=== PATIENT | male | born 2000 | race Caucasian/White ===

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

== ENCOUNTER 2020-10-21 16:14 | Emergency (ER) | payer BC ==
[2020-10-21 17:23] VITALS: BP 127/85; PULSE 105; RESP 20; TEMP 97.9
--- NOTE | 2020-10-21 18:59 | XR ---
EXAM: Abdomen radiograph. HISTORY: Ingested plastic. TECHNIQUE: Supine AP view. COMPARISON: None available. FINDINGS: There is a 1.6 cm cylindrical object overlying the left lower quadrant/hemipelvis. Additional similar object overlying the right groin soft tissues also seen. There are nondilated bowel loops with a non obstructive pattern. There are no pathologic calcifications. No acute osseous abnormality seen. No pn eumoperitoneum. IMPRESSION: Radiopaque objects overlying the left lower quadrant and right groin soft tissues. Correlate for radi opaque foreign bodies. Otherwise no acute process.
--- NOTE | 2020-10-21 19:11 | ED ---
General Adult HPI - General Chief complaint: Abdominal Pain Stated complaint: Swallowed Foreign Object Time Seen by Provider: 10/21/20 17:57 Source: family, RN notes reviewed, old records reviewed Mode of arrival: ambulatory Limitations: language barrier - History of Present Illness Initial comments: 20-year-old male history of autism, nonverbal presenting with ingested foreign body, and vomiting and diarrhea. Patient's parents are able to give a detailed history. He was in his bedroom, he had ripped apart the plastic bedsheet and ingested some of this plastic. He had some vomiting and there was noted to be a plastic piece within the vomit. He's had diarrhea today. No vomiting in the past 24 hours. - Related Data Home Medications Medication Instructions Recorded Confirmed PARoxetine HCL [PARoxetine HCL ER] 37.5 mg PO DAILY 06/19/18 06/19/18 Allergies Allergy/AdvReac Type Severity Reaction Status Date / Time No Known Allergies Allergy Verified 06/19/18 12:50 Review of Systems ROS Statement: Those systems with pertinent positive or pertinent negative responses have been documented in the HPI. ROS Other: All systems not noted in ROS Statement are negative. Past Medical History Additional Past Medical History / Comment(s): autism History of Any Multi-Drug Resistant Organisms: None Reported Additional Past Surgical History / Comment(s): dental surg Past Psychological History: No Psychological Hx Reported Past Alcohol Use History: None Reported Past Drug Use History: None Reported General Exam Limitations: language barrier General appearance: alert, in no apparent distress Head exam: Present: atraumatic, normocephalic Eye exam: Present: normal appearance, PERRL Neck exam: Present: normal inspection. Absent: tenderness, meningismus Respiratory exam: Present: normal lung sounds bilaterally. Absent: respiratory distress, wheezes Cardiovascular Exam: Present: regular rate, normal rhythm GI/Abdominal exam: Present: soft, normal bowel sounds. Absent: distended, tenderness, guarding, rebound Extremities exam: Present: normal inspection, normal capillary refill. Absent: pedal edema Neurological exam: Present: alert, CN II-XII intact. Absent: motor sensory deficit Skin exam: Present: warm, dry, intact. Absent: cyanosis, diaphoretic Course Vital Signs 10/21/20 17:16 Temperature 97.9 F Pulse Rate 105 H Respiratory 20 Rate Blood Pressure 127/85 O2 Sat by Pulse 97 Oximetry Medical Decision Making - Medical Decision Making X-ray performed, negative for obstruction no radiopaque foreign body within the abdomen. There is 2 small plastic or metal cylindrical objects which are on the patient's shorts. He does have stool in the transverse colon Return parameters were discussed in detail regarding this patient's presentation. If he should have any further vomiting, no bowel movements, flatus, or diarrhea. They will be present and at that time patient will receive further evaluation treatment. At this time they will monitor at home. Disposition Clinical Impression: Foreign body ingestion, Nausea vomiting and diarrhea Disposition: HOME SELF-CARE Condition: Good Instructions (If sedation given, give patient instructions): Acute Nausea and Vomiting (ED) Is patient prescribed a controlled substance at d/c from ED?: No Referrals: Lenora Locke MD [Primary Care Provider] - 1-2 days Time of Disposition: 19:11
== END 2020-10-21 19:22 | disposition home or self-care (01) ==
LOC: EC 16:14
DX: T18.9XXA Foreign body of alimentary tract, part unspecified, initial encounter (principal); R11.2 Nausea with vomiting, unspecified; R19.7 Diarrhea, unspecified; W45.8XXA Other foreign body or object entering through skin, initial encounter
CPT/HCPCS: 74018; 99284

== ENCOUNTER 2021-06-29 20:37 | Emergency (ER) | payer BC, OTHER ==
[2021-06-29 21:14] VITALS: BP 110/61; PULSE 88; RESP 18
[2021-06-29 23:10] LABS: Appearance,Urine Cloudy (Clear); Bilirubin,Urine Negative (Negative); Blood,Urine Large (Negative); Color,Urine Yellow; Glucose,Urine (UA) Negative (Negative); Ketones,Urine Negative (Negative); Leukocyte Esterase,Urine Moderate (Negative); Nitrite,Urine Negative (Negative); PH, Urine 7.5 (5.0-8.0); Protein,Urine 3+ (Negative); RBC,Urine >182 /hpf (0-5); Specific Gravity,Urine 1.022 (1.001-1.035); Squamous Epithelial Cell,Urine <1 /hpf (0-4); WBC,Urine 120 /hpf (0-5)
--- NOTE | 2021-06-29 23:43 | ED ---
Male Urogenital HPI - General Chief complaint: Urogenital Stated complaint: Discolored Urine Time Seen by Provider: 06/29/21 23:42 Source: patient, family, RN notes reviewed Mode of arrival: ambulatory Limitations: physical limitation - History of Present Illness Initial comments: This is a 20-year-old male with a history of autism. Patient is nonverbal. Patient family had abnormal [facility]inal[facility] a [facility]. Mother states he has high pain tolerance. Patient has never had a UTI in the past. Apparently the urine was very dark and had some pain to it as well per mother. He is acting appropriately otherwise. Vital signs are stable. - Related Data Home Medications Medication Instructions Recorded Confirmed PARoxetine HCL [PARoxetine HCL ER] 37.5 mg PO DAILY 06/19/18 06/19/18 Previous Rx's Medication Instructions Recorded Cefdinir 300 mg PO Q12HR #14 cap 06/30/21 Allergies Allergy/AdvReac Type Severity Reaction Status Date / Time No Known Allergies Allergy Verified 06/29/21 21:14 Review of Systems ROS Statement: Those systems with pertinent positive or pertinent negative responses have been documented in the HPI. Limited by conditionchronic ROS Other: All systems not noted in ROS Statement are negative. Past Medical History Additional Past Medical History / Comment(s): autism History of Any Multi-Drug Resistant Organisms: None Reported Additional Past Surgical History / Comment(s): dental surg Past Psychological History: No Psychological Hx Reported Smoking Status: Never smoker Past Alcohol Use History: None Reported Past Drug Use History: None Reported General Exam Limitations: physical limitation General appearance: alert, in no apparent distress Head exam: Present: atraumatic, normocephalic, normal inspection Eye exam: Present: normal appearance, PERRL, EOMI. Absent: scleral icterus, conjunctival injection, periorbital swelling ENT exam: Present: normal exam, mucous membranes moist Neck exam: Present: normal inspection. Absent: tenderness, meningismus, lymphadenopathy Respiratory exam: Present: normal lung sounds bilaterally. Absent: respiratory distress, wheezes, rales, rhonchi, stridor Cardiovascular Exam: Present: regular rate, normal rhythm, normal heart sounds. Absent: systolic murmur, diastolic murmur, rubs, gallop, clicks GI/Abdominal exam: Present: soft, normal bowel sounds. Absent: distended, tenderness, guarding, rebound, rigid Extremities exam: Present: normal inspection, full ROM, normal capillary refill. Absent: tenderness, pedal edema, joint swelling, calf tenderness Back exam: Present: normal inspection Neurological exam: Present: alert, CN II-XII intact Psychiatric exam: Present: normal affect, normal mood Skin exam: Present: warm, dry, intact, normal color. Absent: rash Course Vital Signs 06/29/21 21:10 Pulse Rate 88 Respiratory 18 Rate Blood Pressure 110/61 O2 Sat by Pulse 96 Oximetry Medical Decision Making - Medical Decision Making Patient presents with abnormal urine. Urinalysis consistent with urinary tract infection. Urine sent for gonorrhea and chlamydia testing. Patient autistic. Not sexually active. Patient in no distress. Computed tomography scan shows possible ileus but no evidence of urogenital abnormality. Patient is eating and drinking normally. No difficulties with bowel movements. We are unable to obtain blood work, however, the patient does not appear to be ill or toxic. Vital signs stable, patient afebrile. I'm going to treat with Omnicef 300 mg twice a day for 7 days. Patient will need to follow up with urology. Given follow-up information for Dr. Vickers. Return follow-up parameters discussed. Mother aware of the treatment plan and concurs. QUESTIONS answered. Follow-up with your child's physician as directed. Bring your child back to the emergency department immediately if any symptoms worsen or new symptoms develop. Return if any other problems arise. - Lab Data Lab Results 06/29/21 Range/Units 21:23 Urine Color Yellow Urine Appearance Cloudy (Clear) Urine pH 7.5 (5.0-8.0) Ur Specific [place] 1.022 (1.001-1.035) Urine Protein 3+ H (Negative) Urine Glucose (UA) Negative (Negative) Urine Ketones Negative (Negative) Urine Blood Large H (Negative) Urine Nitrite Negative (Negative) Urine Bilirubin Negative (Negative) Urine Urobilinogen 3.0 (<2.0) mg/dL Ur Leukocyte Esterase Moderate H (Negative) Urine RBC >182 H (0-5) /hpf Urine WBC 120 H (0-5) /hpf Ur Squamous Epith Cells <1 (0-4) /hpf Disposition Clinical Impression: Urinary tract infection Disposition: HOME SELF-CARE Condition: Good Instructions (If sedation given, give patient instructions): Urinary Tract I nfection in Men (ED) Additional Instructions: Follow-up with the urologist as directed. Call at 8 AM tomorrow morning to schedule a follow-up appointment. Also make an appointment with the primary care physician. Follow-up with your child's physician as directed. Bring your child back to the emergency department immediately if any symptoms worsen or new symptoms develop. Return if any other problems arise. Administer the antibiotic as directed until it is gone. Prescriptions: Cefdinir 300 mg PO Q12HR #14 cap Is patient prescribed a controlled substance at d/c from ED?: No Referrals: James Vickers MD [STAFF PHYSICIAN] - 07/03/21 Lenora Locke MD [Primary Care Provider] - 07/02/21 Time of Disposition: 01:21
[2021-06-29] MEDS ORDERED: CEFDINIR 300 MG CAP PO STA (23:49)
--- NOTE | 2021-06-30 01:08 | CT ---
EXAMINATION TYPE: CT abdomen pelvis wo con DATE OF EXAM: 06/30/2021 COMPARISON: HISTORY: ABDOMINAL PAIN, HEMATURIA CT DLP: 521 mGycm Automated exposure control for dose reduction was used. Images obtained from the diaphragm to the floor the pelvis without contrast. The lung bases are clear. No pleural effusion. Heart size is fairly normal. No pericardial effusion. Liver spleen and stomach pancreas and gallbladder appear intact. The bile ducts are not dilated. There is no adrenal mass. Kidneys of normal size. There is no hydronephrosis. Ureters are not dilated . There is no retroperitoneal adenopathy. The bladder distends smoothly. There is no inguinal hernia. No free fluid in the pelvis. There is no mesenteric edema. No ascites or free air. No bowel obstruction. Small bowel measures up t o 2.6 cm. Appendix appears medial and appears normal. The lumbar vertebrae have normal alignment. No compression fracture. Posterior elements are intact. B pili pelvis is intact. Hip joints are intact. IMPRESSION: Normal appendix. No sign of renal stone or obstruction. Mild small bowel distention up to 2.6 cm. Thi s is consistent with minimal ileus.
== END 2021-06-30 01:39 | disposition home or self-care (01) ==
LOC: EC 20:37
DX: N39.0 Urinary tract infection, site not specified (principal)
CPT/HCPCS: 74176; 81001; 99284

== ENCOUNTER 2022-05-11 20:24 | Emergency (ER) | payer OTHER, BC ==
[2022-05-11] MEDS ORDERED: ONDANSETRON 4 MG/2 ML VIAL IVP STA (21:21)
--- NOTE | 2022-05-11 21:26 | ED ---
Nausea/Vomiting/Diarrhea HPI - General Chief complaint: Nausea/Vomiting/Diarrhea Stated complaint: Vomiting,Fever Time Seen by Provider: 05/11/22 21:09 Source: patient, family Mode of arrival: ambulatory Limitations: altered mental status, physical limitation - History of Present Illness Initial comments: Patient is a 21-year-old male history of autism presenting with chief complaint of vomiting. Mother states that the snf called her today and states that he has been lethargic and had one episode of vomiting after his meal today. Patient has shown no other signs of distress, mother does not endorse any history of abdominal surgeries. They attempted to get a temperature however this was difficult due to patient excitability. No indications of abdominal pain, no cough or shortness of breath. . - Related Data Home Medications Medication Instructions Recorded Confirmed PARoxetine HCL [PARoxetine HCL ER] 37.5 mg PO DAILY 06/19/18 06/19/18 Previous Rx's Medication Instructions Recorded Cefdinir 300 mg PO Q12HR #14 cap 06/30/21 Allergies Allergy/AdvReac Type Severity Reaction Status Date / Time No Known Allergies Allergy Verified 05/11/22 20:37 Review of Systems ROS Statement: Those systems with pertinent positive or pertinent negative responses have been documented in the HPI. ROS Other: All systems not noted in ROS Statement are negative. Past Medical History Additional Past Medical History / Comment(s): autism History of Any Multi-Drug Resistant Organisms: None Reported Additional Past Surgical History / Comment(s): dental surg Past Psychological History: No Psychological Hx Reported Smoking Status: Never smoker Past Alcohol Use History: None Reported Past Drug Use History: None Reported General Exam Limitations: altered mental status, physical limitation General appearance: alert, in no apparent distress Head exam: Present: atraumatic, normocephalic, normal inspection Eye exam: Present: normal appearance Neck exam: Present: normal inspection, full ROM Respiratory exam: Present: normal lung sounds bilaterally. Absent: respiratory distress, wheezes, rales, rhonchi, stridor Cardiovascular Exam: Present: regular rate, normal rhythm, normal heart sounds. Absent: systolic murmur, diastolic murmur, rubs, gallop, clicks GI/Abdominal exam: Present: soft. Absent: distended, tenderness, guarding, rebound, rigid Neurological exam: Present: alert, altered (baseline) Psychiatric exam: Present: normal affect, normal mood Skin exam: Present: warm, dry, intact, normal color. Absent: rash Course Vital Signs 05/11/22 05/12/22 20:35 00:18 Temperature 98.9 F 98.1 F Pulse Rate 65 80 Respiratory 20 16 Rate Blood Pressure 133/96 122/74 O2 Sat by Pulse 100 98 Oximetry Medical Decision Making - Medical Decision Making Was pt. sent in by a medical professional or institution (, [facility], [employer], urgent care, hospital, or senior care...) When possible be specific @ -No Did you speak to anyone other than the patient for history (EMS, parent, family, police, friend...)? What history was obtained from this source @ -Mother Did you review nursing and triage notes (agree or disagree)? Why? @ -I reviewed and agree with nursing and triage notes Were old charts reviewed (outside hosp., previous admission, EMS record, old EK G, old radiological studies, urgent care reports/EKG's, senior care records)? Report findings @ -No old charts were reviewed Differential Diagnosis (chest pain, altered mental status, abdominal pain women, abdominal pain men, vaginal bleeding, weakness, fever, dyspnea, syncope, headache, dizziness, GI bleed, back pain, seizure, CVA, palpatations, mental health, musculoskeletal)? @ -Differential includes gastroenteritis, appendicitis, bowel obstruction, constipation, this is not an all inclusive list EKG interpreted by me (3pts min.). @ -As above X-rays interpreted by me (1pt min.). @ -KUB x-ray shows nonacute abdomen CT interpreted by me (1pt min.). @ -None done U/S interpreted by me (1pt. min.). @ -None done What testing was considered but not performed or refused? (CT, X-rays, U/S, labs)? Why? @ -None What meds were considered but not given or refused? Why? @ -None Did you discuss the management of the patient with other professionals (professionals i.e. JIL Noel, [employer]TER, lab, RT, psych nurse, social service liaison, recruitment manager, teacher, maritime officer, cyanide case hardener)? Give summary @ -No Was smoking cessation discussed for >3mins.? @ -No Was critical care preformed (if so, how long)? @ -No Were there social determinants of health that impacted care today? How? (Homelessness, low income, unemployed, alcoholism, drug addiction, transportation, low edu. Level, literacy, decrease access to med. care, half-way, rehab)? @ -No Was there de-escalation of care discussed even if they declined (Discuss DNR or withdrawal of care, Hospice)? DNR status @ -No What co-morbidities impacted this encounter? (DM, HTN, Smoking, COPD, CAD, Cancer, CVA, ARF, Chemo, Hep., AIDS, mental health diagnosis, sleep apnea, mor bid obesity)? @ -None Was patient admitted / discharged? Hospital course, mention meds given and route, prescriptions, significant lab abnormalities, going to OR and other pertinent info. @ -Patient is a 21-year-old male with history of autism presenting for evaluation of vomiting and fatigue that started today. Mother is accompanying the patient, she was made aware of these symptoms by his snf. On physical examination and no signs of distress, patient is relaxing comfortably in the bed on his iPad. Physical examination is unremarkable. WBC 14.2, likely reactive. Glucose 101, remainder CMP is unremarkable. Amylase and lipase are WNL. Urine shows 2+ ketones, likely due to dehydration. Patient was given a dose of Zofran and has been drinking water throughout his course without vomiting. Patient is negative for influenza, RSV, and Covid. KUB x-ray shows nonacute abdomen. I educated the mother on results, shared decision making was used and she is comfortable with discharge at this time and watching for any worsening symptoms. Follow-up with PCP. Report back to ER with any new or worsening symptoms. Discussed return parameters and answered all questions. Patient conveyed verbal understanding and agreed to the plan. I discussed this case in detail with my attending Dr. Retana Undiagnosed new problem with uncertain prognosis? @ -No Drug Therapy requiring intensive monitoring for toxicity (Heparin, Nitro, Insulin, Cardizem)? @ -No Were any procedures done? @ -No Diagnosis/symptom? @ -Gastroenteritis Acute, or Chronic, or Acute on Chronic? @ -Acute Uncomplicated (without systemic symptoms) or Complicated (systemic symptoms)? @ -uncomplicated Side effects of treatment? @ -No Exacerbation, Progression, or Severe Exacerbation? @ -No Poses a threat to life or bodily function? How? (Chest pain, [place], [place], pneumonia, PE, COPD, DKA, ARF, appy, cholecystitis, CVA, Diverticulitis, Homicidal, Suicidal, threat to staff... and all critical care pts) @ -No - Lab Data Result diagrams: 05/11/22 21:21 05/11/22 21:21 Lab Results 05/11/22 05/11/22 05/11/22 Range/Units 21:21 21:21 21:31 WBC 14.2 H (3.8-10.6) k/uL RBC 4.98 (4.30-5.90) m/uL Hgb 15.5 (13.0-17.5) gm/dL Hct 44.8 (39.0-53.0) % MCV 90.1 (80.0-100.0) fL MCH 31.1 (25.0-35.0) pg MCHC 34.6 (31.0-37.0) g/dL RDW 12.9 (11.5-15.5) % Plt Count 222 (150-450) k/uL MPV 8.3 Neutrophils % 83 % Lymphocytes % 12 % Monocytes % 4 % Eosinophils % 1 % Basophils % 0 % Neutrophils # 11.7 H (1.3-7.7) k/uL Lymphocytes # 1.7 (1.0-4.8) k/uL Monocytes # 0.5 (0-1.0) k/uL Eosinophils # 0.1 (0-0.7) k/uL Basophils # 0.0 (0-0.2) k/uL Sodium 140 (137-145) mmol/L Potassium 4.4 (3.5-5.1) mmol/L Chloride 103 (98-107) mmol/L Carbon Dioxide 28 (22-30) mmol/L Anion Gap 9 mmol/L BUN 15 (9-20) mg/dL Creatinine 0.71 (0.66-1.25) mg/dL Est GFR (CKD-EPI)AfAm >90 (>60 ml/min/1.73 sqM) Est GFR (CKD-EPI)NonAf >90 (>60 ml/min/1.73 sqM) Glucose 101 H (74-99) mg/dL Calcium 9.5 (8.4-10.2) mg/dL Total Bilirubin 0.7 (0.2-1.3) mg/dL AST 35 (17-59) U/L ALT 38 (4-49) U/L Alkaline Phosphatase 64 (38-126) U/L Total Protein 7.7 (6.3-8.2) g/dL Albumin 4.6 (3.5-5.0) g/dL Amylase 68 (30-110) U/L Lipase 88 (23-300) U/L Urine Color Urine Appearance (Clear) Urine pH (5.0-8.0) Ur Specific [place] (1.001-1.035) Urine Protein (Negative) Urine Glucose (UA) (Negative) Urine Ketones (Negative) Urine Blood (Negative) Urine Nitrite (Negative) Urine Bilirubin (Negative) Urine Urobilinogen (<2.0) mg/dL Ur Leukocyte Esterase (Negative) Influenza Type A (PCR) Not Detected (Not Detectd) Influenza Type B (PCR) Not Detected (Not Detectd) RSV (PCR) Not Detected (Not Detectd) SARS-CoV-2 (PCR) Not Detected (Not Detectd) 05/11/22 Range/Units 21:46 WBC (3.8-10.6) k/uL RBC (4.30-5.90) m/uL Hgb (13.0-17.5) gm/dL Hct (39.0-53.0) % MCV (80.0-100.0) fL MCH (25.0-35.0) pg MCHC (31.0-37.0) g/dL RDW (11.5-15.5) % Plt Count (150-450) k/uL MPV Neutrophils % % Lymphocytes % % Monocytes % % Eosinophils % % Basophils % % Neutrophils # (1.3-7.7) k/uL Lymphocytes # (1.0-4.8) k/uL Monocytes # (0-1.0) k/uL Eosinophils # (0-0.7) k/uL Basophils # (0-0.2) k/uL Sodium (137-145) mmol/L Potassium (3.5-5.1) mmol/L Chloride (98-107) mmol/L Carbon Dioxide (22-30) mmol/L Anion Gap mmol/L BUN (9-20) mg/dL Creatinine (0.66-1.25) mg/dL Est GFR (CKD-EPI)AfAm (>60 ml/min/1.73 sqM) Est GFR (CKD-EPI)NonAf (>60 ml/min/1.73 sqM) Glucose (74-99) mg/dL Calcium (8.4-10.2) mg/dL Total Bilirubin (0.2-1.3) mg/dL AST (17-59) U/L ALT (4-49) U/L Alkaline Phosphatase (38-126) U/L Total Protein (6.3-8.2) g/dL Albumin (3.5-5.0) g/dL Amylase (30-110) U/L Lipase (23-300) U/L Urine Color Yellow Urine Appearance Clear (Clear) Urine pH 6.0 (5.0-8.0) Ur Specific [place] 1.032 (1.001-1.035) Urine Protein Trace H (Negative) Urine Glucose (UA) Negative (Negative) Urine Ketones 2+ H (Negative) Urine Blood Negative (Negative) Urine Nitrite Negative (Negative) Urine Bilirubin Negative (Negative) Urine Urobilinogen 6.0 (<2.0) mg/dL Ur Leukocyte Esterase Negative (Negative) Influenza Type A (PCR) (Not Detectd) Influenza Type B (PCR) (Not Detectd) RSV (PCR) (Not Detectd) SARS-CoV-2 (PCR) (Not Detectd) Disposition Clinical Impression: Vomiting, Dehydration Disposition: HOME SELF-CARE Condition: Good Instructions (If sedation given, give patient instructions): Dehydration (ED), Acute Nausea and Vomiting (ED) Additional Instructions: Follow-up with PCP. Report back to ER with any new or worsening symptoms. Is patient prescribed a controlled substance at d/c from ED?: No Referrals: Lenora Locke MD [Primary Care Provider] - 1-2 days Time of Disposition: 00:05
[2022-05-11 22:03] LABS: Basophils % (A) 0 %; Eosinophils # (A) 0.1 k/uL (0-0.7); Eosinophils % (A) 1 %; HCT 44.8 % (39.0-53.0); HGB 15.5 gm/dL (13.0-17.5); Lymphocytes # (A) 1.7 k/uL (1.0-4.8); Lymphocytes % (A) 12 %; MCH 31.1 pg (25.0-35.0); MCHC 34.6 g/dL (31.0-37.0); MCV 90.1 fL (80.0-100.0); Mean Platelet Volume 8.3; Monocytes # (A) 0.5 k/uL (0-1.0); Monocytes % (A) 4 %; Neutrophils # (A) 11.7 k/uL (1.3-7.7); Neutrophils % (A) 83 %; Platelet Count 222 k/uL (150-450); RBC 4.98 m/uL (4.30-5.90); RDW 12.9 % (11.5-15.5); WBC 14.2 k/uL (3.8-10.6)
--- NOTE | 2022-05-11 22:04 | XR ---
EXAMINATION TYPE: XR KUB DATE OF EXAM: 05/11/2022 COMPARISON: NONE HISTORY: Vomiting TECHNIQUE: 2 views FINDINGS: Upright views were obtained that show no sign of intestinal obstruction or pneumoperitoneum . Fecal pattern is normal. No evidence of a mass. No pathologic calcification over the kidneys. Lung bases are clear. IMPRESSION: Nonacute abdomen.
[2022-05-11 22:15] LABS: ALT 38 U/L (4-49); AST 35 U/L (17-59); African American GFR (CKD) >90 (>60 ml/min/1.73 sqM); Albumin 4.6 g/dL (3.5-5.0); Alkaline Phosphatase 64 U/L (38-126); Amylase 68 U/L (30-110); Anion Gap 9 mmol/L; Blood Urea Nitrogen 15 mg/dL (9-20); Calcium 9.5 mg/dL (8.4-10.2); Carbon Dioxide 28 mmol/L (22-30); Chloride 103 mmol/L (98-107); Glucose 101 mg/dL (74-99); Lipase 88 U/L (23-300); Non-African American GFR(CKD) >90 (>60 ml/min/1.73 sqM); Potassium 4.4 mmol/L (3.5-5.1); Sodium 140 mmol/L (137-145); Total Bilirubin 0.7 mg/dL (0.2-1.3); Total Protein 7.7 g/dL (6.3-8.2)
[2022-05-11 23:55] LABS: Appearance,Urine Clear (Clear); Bilirubin,Urine Negative (Negative); Blood,Urine Negative (Negative); Color,Urine Yellow; Glucose,Urine (UA) Negative (Negative); Ketones,Urine 2+ (Negative); Leukocyte Esterase,Urine Negative (Negative); Nitrite,Urine Negative (Negative); Protein,Urine Trace (Negative); Specific Gravity,Urine 1.032 (1.001-1.035)
[2022-05-12 00:19] VITALS: BP 122/74; PULSE 80; RESP 16; TEMP 98.1
== END 2022-05-12 00:25 | disposition home or self-care (01) ==
LOC: EC 20:24
DX: E86.0 Dehydration (principal); R11.2 Nausea with vomiting, unspecified; Z20.822 Contact with and (suspected) exposure to COVID-19
CPT/HCPCS: 36415; 80053; 82150; 83690; 85025; 81003; 87636; 74018; 99284; 96374; J2405

== ENCOUNTER 2022-06-23 16:52 | Emergency (ER) | payer BC, OTHER ==
[2022-06-23 17:14] VITALS: RESP 16; TEMP 98.1
[2022-06-23 18:32] LABS: Basophils % (A) 0 %; Eosinophils # (A) 0.2 k/uL (0-0.7); Eosinophils % (A) 1 %; HCT 41.1 % (39.0-53.0); HGB 13.6 gm/dL (13.0-17.5); Lymphocytes % (A) 15 %; MCH 30.5 pg (25.0-35.0); MCHC 33.2 g/dL (31.0-37.0); MCV 91.9 fL (80.0-100.0); Mean Platelet Volume 8.6; Monocytes % (A) 7 %; Neutrophils # (A) 10.1 k/uL (1.3-7.7); Neutrophils % (A) 75 %; Platelet Count 202 k/uL (150-450); RBC 4.47 m/uL (4.30-5.90); RDW 12.9 % (11.5-15.5); WBC 13.6 k/uL (3.8-10.6)
[2022-06-23 18:41] LABS: ALT 28 U/L (4-49); AST 25 U/L (17-59); African American GFR (CKD) >90 (>60 ml/min/1.73 sqM); Albumin 4.1 g/dL (3.5-5.0); Alkaline Phosphatase 55 U/L (38-126); Amylase 65 U/L (30-110); Anion Gap 9 mmol/L; Blood Urea Nitrogen 13 mg/dL (9-20); Calcium 8.9 mg/dL (8.4-10.2); Carbon Dioxide 29 mmol/L (22-30); Chloride 98 mmol/L (98-107); Glucose 94 mg/dL (74-99); Lipase 73 U/L (23-300); Non-African American GFR(CKD) >90 (>60 ml/min/1.73 sqM); Potassium 3.8 mmol/L (3.5-5.1); Sodium 136 mmol/L (137-145); Total Bilirubin 0.5 mg/dL (0.2-1.3)
--- NOTE | 2022-06-23 19:10 | XR ---
EXAMINATION TYPE: XR KUB DATE OF EXAM: 06/23/2022 6:18 PM INDICATION: Patient age:Male; 21 years old; Reason for study: abd pain; PHH. COMPARISON: 05/11/2022 TECHNIQUE: One radiographic view of the abdomen was obtained. FINDINGS: Large stool burden in the descending colon, sigmoid colon and rectum. The bowel gas pattern is nonspecific without dilated loops of small or large bowel. There is no evidence for organomegaly or pneumoperitoneum. The osseous structures are intact. No abnormal calcifications are present. Fec al material and gas are demonstrated throughout the colon and rectum. IMPRESSION: Large stool burden in the descending colon, sigmoid colon and rectum.
--- NOTE | 2022-06-23 19:14 | ED ---
General Adult HPI - General Chief complaint: Nausea/Vomiting/Diarrhea Stated complaint: Vomiting Time Seen by Provider: 06/23/22 17:36 Source: family, RN notes reviewed Mode of arrival: ambulatory Limitations: no limitations - History of Present Illness Initial comments: 21-year-old male presents to the emergency department with mother for chief complaint of vomiting. Mother states that the patient vomited 2 times today and once on Tuesday. Mother also reports that he was here for vomiting back in April and has had about a weekly episode of vomiting since then. Patient is not displaying any signs of abdominal pain. Last bowel movement was on Tuesday, mother called the [facility] who states that the patient has not been having as many bowel movements in the past couple weeks. Mother denies fevers. Mother denies prior abdominal surgeries. - Related Data Home Medications Medication Instructions Recorded Confirmed PARoxetine HCL [PARoxetine HCL ER] 75 mg PO DAILY 06/19/18 06/23/22 ALPRAZolam [Xanax] 0.25 mg PO DAILY PRN 06/23/22 06/23/22 Divalproex Sodium [Depakote] 1,000 mg PO HS 06/23/22 06/23/22 Divalproex Sodium [Depakote] 500 mg PO QAM 06/23/22 06/23/22 LORazepam [Ativan] 1 mg PO BID PRN 06/23/22 06/23/22 Melatonin 5 mg PO HS 06/23/22 06/23/22 Naltrexone HCl [Revia] 50 mg PO DAILY 06/23/22 06/23/22 OLANZapine [OLANZapine Odt] 10 mg PO HS 06/23/22 06/23/22 Propranolol [Inderal] 10 mg PO DAILY@1600 06/23/22 06/23/22 hydrOXYzine pamoate [Vistaril] 50 mg PO BID 06/23/22 06/23/22 Previous Rx's Medication Instructions Recorded Ondansetron Odt [Zofran Odt] 4 mg PO Q8HR PRN #10 tab 06/23/22 Allergies Allergy/AdvReac Type Severity Reaction Status Date / Time No Known Allergies Allergy Verified 06/23/22 18:22 Review of Systems ROS Statement: Those systems with pertinent positive or pertinent negative responses have been documented in the HPI. ROS Other: All systems not noted in ROS Statement are negative. Past Medical History Additional Past Medical History / Comment(s): autism History of Any Multi-Drug Resistant Organisms: None Reported Additional Past Surgical History / Comment(s): dental surg Past Psychological History: No Psychological Hx Reported Smoking Status: Never smoker Past Alcohol Use History: None Reported Past Drug Use History: None Reported General Exam Limitations: language barrier General appearance: alert, in no apparent distress Head exam: Present: atraumatic, normocephalic, normal inspection Eye exam: Present: normal appearance ENT exam: Present: normal exam, mucous membranes moist Neck exam: Present: normal inspection. Absent: tenderness, meningismus, lymphadenopathy Respiratory exam: Present: normal lung sounds bilaterally. Absent: respiratory distress, wheezes, rales, rhonchi, stridor Cardiovascular Exam: Present: regular rate, normal rhythm, normal heart sounds. Absent: systolic murmur, diastolic murmur, rubs, gallop, clicks GI/Abdominal exam: Present: soft, normal bowel sounds. Absent: distended, tenderness, guarding, rebound, rigid Back exam: Present: normal inspection. Absent: CVA tenderness (R), CVA tenderness (L) Neurological exam: Present: alert Psychiatric exam: Present: normal affect, normal mood Skin exam: Present: warm, dry, intact, normal color. Absent: rash Course Vital Signs 06/23/22 06/23/22 17:11 21:32 Temperature 98.1 F Pulse Rate 83 85 Respiratory 16 16 Rate Blood Pressure 115/80 156/90 O2 Sat by Pulse 96 97 Oximetry Medical Decision Making - Medical Decision Making Was pt. sent in by a medical professional or institution (, PA, SOFTWARE SYSTEMS ANALYST, urgent care, hospital, or senior living...) When possible be specific @ -No Did you speak to anyone other than the patient for history (EMS, parent, family, police, friend...)? What history was obtained from this source @ -No Did you review nursing and triage notes (agree or disagree)? Why? @ -I reviewed and agree with nursing and triage notes Were old charts reviewed (outside hosp., previous admission, EMS record, old EKG, old radiological studies, urgent care reports/EKG's, senior living records)? Report findings @ -Our laboratory studies from last visit reviewed which were comparable to today's visit Differential Diagnosis (chest pain, altered mental status, abdominal pain women, abdominal pain men, vaginal bleeding, weakness, fever, dyspnea, syncope, headac he, dizziness, GI bleed, back pain, seizure, CVA, palpatations, mental health, musculoskeletal)? @ -Viral gastroenteritis, strep pharyngitis, constipation, this list is not all-inclusive] EKG interpreted by me (3pts min.). @ -None X-rays interpreted by me (1pt min.). @ -KUB showed moderate stool burden CT interpreted by me (1pt min.). @ -None done U/S interpreted by me (1pt. min.). @ -None done What testing was considered but not performed or refused? (CT, X-rays, U/S, labs)? Why? @ -None What meds were considered but not given or refused? Why? @ -None Did you discuss the management of the patient with other professionals (pr ofessionals i.e. , PA, SOFTWARE SYSTEMS ANALYST, lab, RT, psych nurse, social worker assistant, room maid, teacher, customer service security officer, case hardener)? Give summary @ -No Was smoking cessation discussed for >3mins.? @ -No Was critical care preformed (if so, how long)? @ -No Were there social determinants of health that impacted care today? How? (Homelessness, low income, unemployed, alcoholism, drug addiction, transport ation, low edu. Level, literacy, decrease access to med. care, halfway, rehab)? @ -No Was there de-escalation of care discussed even if they declined (Discuss DNR or withdrawal of care, Hospice)? DNR status @ -No What co-morbidities impacted this encounter? (DM, HTN, Smoking, COPD, CAD, Cancer, CVA, ARF, Chemo, Hep., AIDS, mental health diagnosis, sleep apnea, morbid obesity)? @ -None Was patient admitted / discharged? Hospital course, mention meds given and route, prescriptions, significant lab abnormalities, going to OR and other pertinent info. @ -Discharged. Patient presented to the emergency department with mother for vomiting 2 times today and once on Tuesday. Mother states that he is not showing any signs that he is in pain as the patient is nonverbal. CBC and CMP were obtained which were comparable to his prior visit at the end of April. UA showe d no evidence of urinary tract infection. KUB showed moderate stool burden, no air-fluid levels. Patient given suppository and advised to take MiraLAX daily for the next 7 days. Patient discharged in stable condition and advised to follow up with primary care provider for further workup. Case discussed with my attending, Dr. Rod, who also evaluated the patient Undiagnosed new problem with uncertain prognosis? @ -No Drug Therapy requiring intensive monitoring for toxicity (Heparin, Nitro, Insulin, Cardizem)? @ -No Were any procedures done? @ -No Diagnosis/symptom? @ -vomiting Acute, or Chronic, or Acute on Chronic? @ -acute Uncomplicated (without systemic symptoms) or Complicated (systemic symptoms)? @ -uncomplicated Side effects of treatment? @ -No Exacerbation, Progression, or Severe Exacerbation? @ -No Poses a threat to life or bodily function? How? (Chest pain, [place], [place], pneumonia, PE, COPD, DKA, ARF, appy, cholecystitis, CVA, Diverticulitis, Homicidal, Suicidal, threat to staff... and all critical care pts) @ -No - Lab Data Result diagrams: 06/23/22 18:24 06/23/22 18:24 Lab Results 06/23/22 06/23/22 06/23/22 Range/Units 18:24 18:24 18:24 WBC 13.6 H (3.8-10.6) k/uL RBC 4.47 (4.30-5.90) m/uL Hgb 13.6 (13.0-17.5) gm/dL Hct 41.1 (39.0-53.0) % MCV 91.9 (80.0-100.0) fL MCH 30.5 (25.0-35.0) pg MCHC 33.2 (31.0-37.0) g/dL RDW 12.9 (11.5-15.5) % Plt Count 202 (150-450) k/uL MPV 8.6 Neutrophils % 75 % Lymphocytes % 15 % Monocytes % 7 % Eosinophils % 1 % Basophils % 0 % Neutrophils # 10.1 H (1.3-7.7) k/uL Lymphocytes # 2.0 (1.0-4.8) k/uL Monocytes # 1.0 (0-1.0) k/uL Eosinophils # 0.2 (0-0.7) k/uL Basophils # 0.0 (0-0.2) k/uL Sodium 136 L (137-145) mmol/L Potassium 3.8 (3.5-5.1) mmol/L Chloride 98 (98-107) mmol/L Carbon Dioxide 29 (22-30) mmol/L Anion Gap 9 mmol/L BUN 13 (9-20) mg/dL Creatinine 0.63 L (0.66-1.25) mg/dL Est GFR (CKD-EPI)AfAm >90 (>60 ml/min/1.73 sqM) Est GFR (CKD-EPI)NonAf >90 (>60 ml/min/1.73 sqM) Glucose 94 (74-99) mg/dL Calcium 8.9 (8.4-10.2) mg/dL Total Bilirubin 0.5 (0.2-1.3) mg/dL AST 25 (17-59) U/L ALT 28 (4-49) U/L Alkaline Phosphatase 55 (38-126) U/L Total Protein 7.0 (6.3-8.2) g/dL Albumin 4.1 (3.5-5.0) g/dL Amylase 65 (30-110) U/L Lipase 73 (23-300) U/L Urine Color Urine Appearance (Clear) Urine pH (5.0-8.0) Ur Specific [place] (1.001-1.035) Urine Protein (Negative) Urine Glucose (UA) (Negative) Urine Ketones (Negative) Urine Blood (Negative) Urine Nitrite (Negative) Urine Bilirubin (Negative) Urine Urobilinogen (<2.0) mg/dL Ur Leukocyte Esterase (Negative) Group A Strep (PCR) NOT DETECTED (Not Detectd) 06/23/22 Range/Units 19:46 WBC (3.8-10.6) k/uL RBC (4.30-5.90) m/uL Hgb (13.0-17.5) gm/dL Hct (39.0-53.0) % MCV (80.0-100.0) fL MCH (25.0-35.0) pg MCHC (31.0-37.0) g/dL RDW (11.5-15.5) % Plt Count (150-450) k/uL MPV Neutrophils % % Lymphocytes % % Monocytes % % Eosinophils % % Basophils % % Neutrophils # (1.3-7.7) k/uL Lymphocytes # (1.0-4.8) k/uL Monocytes # (0-1.0) k/uL Eosinophils # (0-0.7) k/uL Basophils # (0-0.2) k/uL Sodium (137-145) mmol/L Potassium (3.5-5.1) mmol/L Chloride (98-107) mmol/L Carbon Dioxide (22-30) mmol/L Anion Gap mmol/L BUN (9-20) mg/dL Creatinine (0.66-1.25) mg/dL Est GFR (CKD-EPI)AfAm (>60 ml/min/1.73 sqM) Est GFR (CKD-EPI)NonAf (>60 ml/min/1.73 sqM) Glucose (74-99) mg/dL Calcium (8.4-10.2) mg/dL Total Bilirubin (0.2-1.3) mg/dL AST (17-59) U/L ALT (4-49) U/L Alkaline Phosphatase (38-126) U/L Total Protein (6.3-8.2) g/dL Albumin (3.5-5.0) g/dL Amylase (30-110) U/L Lipase (23-300) U/L Urine Color Yellow Urine Appearance Clear (Clear) Urine pH 8.5 H (5.0-8.0) Ur Specific [place] 1.019 (1.001-1.035) Urine Protein Trace H (Negative) Urine Glucose (UA) Negative (Negative) Urine Ketones 1+ H (Negative) Urine Blood Negative (Negative) Urine Nitrite Negative (Negative) Urine Bilirubin Negative (Negative) Urine Urobilinogen 6.0 (<2.0) mg/dL Ur Leukocyte Esterase Negative (Negative) Group A Strep (PCR) (Not Detectd) Disposition Clinical Impression: Vomiting Disposition: HOME SELF-CARE Condition: Stable Instructions (If sedation given, give patient instructions): Acute Nausea and Vomiting (ED) Additional Instructions: Please return to the Emergency Department if symptoms worsen or any other concerns. Prescriptions: Ondansetron Odt [Zofran Odt] 4 mg PO Q8HR PRN #10 tab PRN Reason: Nausea Is patient prescribed a controlled substance at d/c from ED?: No Referrals: Lenora Locke MD [Primary Care Provider] - 1-2 days Time of Disposition: 20:57
[2022-06-23] MEDS ORDERED: GLYCERIN ADULT SUPPOSITORY 1 EACH RECTAL STA (20:19)
[2022-06-23 20:54] LABS: Appearance,Urine Clear (Clear); Bilirubin,Urine Negative (Negative); Blood,Urine Negative (Negative); Color,Urine Yellow; Glucose,Urine (UA) Negative (Negative); Ketones,Urine 1+ (Negative); Leukocyte Esterase,Urine Negative (Negative); Nitrite,Urine Negative (Negative); PH, Urine 8.5 (5.0-8.0); Protein,Urine Trace (Negative); Specific Gravity,Urine 1.019 (1.001-1.035)
[2022-06-23 21:34] VITALS: BP 156/90; PULSE 85
== END 2022-06-23 21:34 | disposition home or self-care (01) ==
LOC: EC 16:52
DX: R11.10 Vomiting, unspecified (principal); Z20.822 Contact with and (suspected) exposure to COVID-19
CPT/HCPCS: 36415; 74018; 80053; 81003; 82150; 83690; 85025; 87651; 99284

== ENCOUNTER 2022-07-04 19:19 | Observation (INO) | payer BC, OTHER ==
[2022-07-04] MEDS ORDERED: SODIUM CHLORIDE 0.9% 1,000 ML IV STA (20:47)
[2022-07-04] MEDS ORDERED: ONDANSETRON 4 MG/2 ML VIAL IVP STA (20:47)
[2022-07-04] MEDS ORDERED: PANTOPRAZOLE 40 MG/10 ML VIAL IVP STA (20:47)
[2022-07-04 22:33] LABS: Basophils # (A) 0.1 k/uL (0-0.2); Basophils % (A) 0 %; Eosinophils # (A) 0.1 k/uL (0-0.7); Eosinophils % (A) 1 %; HCT 44.7 % (39.0-53.0); HGB 15.2 gm/dL (13.0-17.5); Lymphocytes % (A) 4 %; MCH 31.3 pg (25.0-35.0); MCHC 34.1 g/dL (31.0-37.0); MCV 91.7 fL (80.0-100.0); Mean Platelet Volume 7.9; Monocytes # (A) 1.2 k/uL (0-1.0); Monocytes % (A) 5 %; Neutrophils % (A) 89 %; Platelet Count 263 k/uL (150-450); RBC 4.87 m/uL (4.30-5.90); WBC 22.6 k/uL (3.8-10.6)
[2022-07-04 22:49] LABS: ALT 29 U/L (4-49); AST 38 U/L (17-59); African American GFR (CKD) >90 (>60 ml/min/1.73 sqM); Albumin 4.4 g/dL (3.5-5.0); Alkaline Phosphatase 68 U/L (38-126); Anion Gap 10 mmol/L; Blood Urea Nitrogen 20 mg/dL (9-20); Calcium 9.6 mg/dL (8.4-10.2); Carbon Dioxide 29 mmol/L (22-30); Chloride 100 mmol/L (98-107); Glucose 93 mg/dL (74-99); Non-African American GFR(CKD) >90 (>60 ml/min/1.73 sqM); Potassium 4.7 mmol/L (3.5-5.1); Sodium 139 mmol/L (137-145); Total Bilirubin 0.7 mg/dL (0.2-1.3); Total Protein 7.6 g/dL (6.3-8.2)
--- NOTE | 2022-07-04 23:16 | ED ---
General Adult HPI - General Source: family Mode of arrival: ambulatory Limitations: altered mental status, physical limitation <Emily Sandoval - Last Filed: 07/05/22 09:53> - History of Present Illness -: month(s) Location: abdomen Radiation: abdomen Severity scale (1-10): 5 Quality: stabbing, aching, sharp Consistency: intermittent, colicky Improves with: none Worsens with: none Associated Symptoms: loss of appetite, nausea/vomiting Treatments Prior to Arrival: none <William Rod - Last Filed: 07/07/22 15:53> - General Chief complaint: Nausea/Vomiting/Diarrhea Stated complaint: vomiting Time Seen by Provider: 07/04/22 20:45 - History of Present Illness Initial comments: Patient is a 21-year-old male who presents to the emergency department who presents from his [facility] for evaluation of vomiting. Patient is autistic and nonverbal. This is patient's third evaluation for vomiting in the past 2 months. Mother states patient has no vomiting on some days and other days vomited several times. The [facility] called her today letting her know that patient had been more tired than usual and had been vomiting. She denies any blood in the vomit. She is unable to tell if patient is in pain as she states patient has a high pain tolerance. He has had no recent fevers. No diarrhea or constipation. He does have a mild cough. (Emily Sandoval) - Related Data Home Medications Medication Instructions Recorded Confirmed PARoxetine HCL [PARoxetine HCL ER] 75 mg PO DAILY@0806/19/18 07/05/22 ALPRAZolam [Xanax] 0.25 mg PO DAILY PRN 06/23/22 07/05/22 Divalproex Sodium [Depakote] 1,000 mg PO HS@199906/23/22 07/05/22 Divalproex Sodium [Depakote] 500 mg PO DAILY@79906/23/22 07/05/22 LORazepam [Ativan] 1 mg PO DAILY PRN 06/23/22 07/05/22 Melatonin 5 mg PO HS@199906/23/22 07/05/22 Naltrexone HCl [Revia] 50 mg PO DAILY@79906/23/22 07/05/22 OLANZapine [OLANZapine Odt] 10 mg PO HS@199906/23/22 07/05/22 Propranolol [Inderal] 10 mg PO DAILY@1600 06/23/22 07/05/22 hydrOXYzine pamoate [Vistaril] 50 mg PO BID@0800,199906/23/22 07/05/22 Docusate [Colace] 100 mg PO BID PRN 07/05/22 07/05/22 metFORMIN HCL [Glucophage] 500 mg PO DAILY@0800 07/05/22 07/05/22 Previous Rx's Medication Instructions Recorded Ondansetron Odt [Zofran ODT] 4 mg PO Q8HR PRN #10 tab 06/23/22 Pantoprazole [Protonix] 40 mg PO AC-BRKFST #30 tab 07/07/22 Allergies Allergy/AdvReac Type Severity Reaction Status Date / Time No Known Allergies Allergy Verified 07/05/22 09:08 Review of Systems ROS Other: All systems not noted in ROS Statement are negative. <Emily Sandoval - Last Filed: 07/05/22 09:53> ROS Other: All systems not noted in ROS Statement are negative. <William Rod - Last Filed: 07/07/22 15:53> ROS Statement: Those systems with pertinent positive or pertinent negative responses have been documented in the HPI. Past Medical History Additional Past Medical History / Comment(s): autism History of Any Multi-Drug Resistant Organisms: None Reported Additional Past Surgical History / Comment(s): dental surg Past Psychological History: No Psychological Hx Reported Smoking Status: Never smoker Past Alcohol Use History: None Reported Past Drug Use History: None Reported <Emily Sandoval - Last Filed: 07/05/22 09:53> General Exam Limitations: altered mental status, physical limitation General appearance: alert, in no apparent distress Head exam: Present: atraumatic, normocephalic, normal inspection Eye exam: Present: normal appearance, PERRL, EOMI. Absent: scleral icterus, conjunctival injection, periorbital swelling Respiratory exam: Present: normal lung sounds bilaterally. Absent: respiratory distress, wheezes, rales, rhonchi, stridor Cardiovascular Exam: Present: regular rate, normal rhythm, normal heart sounds. Absent: systolic murmur, diastolic murmur, rubs, gallop, clicks GI/Abdominal exam: Present: soft, normal bowel sounds. Absent: distended, tenderness, guarding, rebound, rigid Neurological exam: Present: alert Skin exam: Present: warm, dry, intact, normal color. Absent: rash <Abilio Sandovalna - Last Filed: 07/05/22 09:53> General appearance: alert, in no apparent distress Head exam: Present: atraumatic, normocephalic, normal inspection Eye exam: Present: normal appearance, PERRL, EOMI. Absent: scleral icterus, conjunctival injection, periorbital swelling ENT exam: Present: normal exam, mucous membranes moist Neck exam: Present: normal inspection. Absent: tenderness, meningismus, lymphadenopathy Respiratory exam: Present: normal lung sounds bilaterally. Absent: respiratory distress, wheezes, rales, rhonchi, stridor Cardiovascular Exam: Present: regular rate, normal rhythm, normal heart sounds. Absent: systolic murmur, diastolic murmur, rubs, gallop, clicks GI/Abdominal exam: Present: soft, normal bowel sounds. Absent: distended, tenderness, guarding, rebound, rigid Extremities exam: Present: normal inspection, full ROM, normal capillary refill. Absent: tenderness, pedal edema, joint swelling, calf tenderness Back exam: Present: normal inspection Neurological exam: Present: alert, oriented X3, CN II-XII intact Psychiatric exam: Present: normal affect, normal mood Skin exam: Present: warm, dry, intact, normal color. Absent: rash <William Rod - Last Filed: 07/07/22 15:53> Course <William Rod - Last Filed: 07/07/22 15:53> Vital Signs 07/04/22 07/04/22 07/05/22 20:30 23:23 02:00 Temperature 98.0 F 99.1 F Pulse Rate 89 88 Pulse Rate [ 93 Left Supine Pulse Oximetery ] Respiratory 18 16 18 Rate Blood Pressure 123/75 142/89 Blood Pressure 124/80 [Left Arm Supine] O2 Sat by Pulse 96 98 97 Oximetry - Reevaluation(s) Reevaluation #1: Medical records reviewed (William Rod) Reevaluation #2: Patient has no active vomiting here in the ER, no abdominal pain (William Rod) Reevaluation #3: Spoke with patient's mother as guardian, questions answered (William Rod) Medical Decision Making - Lab Data Result diagrams: 07/04/22 22:21 07/04/22 22:21 <LoriAbilio andersenna - Last Filed: 07/05/22 09:53> - Lab Data Result diagrams: 07/06/22 04:04 07/06/22 04:04 - Radiology Data Radiology results: report reviewed (CT head and pelvis positive for increased burden and colitis), image reviewed <William Rod - Last Filed: 07/07/22 15:53> - Medical Decision Making Was pt. sent in by a medical professional or institution (, PA, [employer], urgent care, hospital, or [facility]...) When possible be specific @ -No Did you speak to anyone other than the patient for history (EMS, parent, family, police, friend...)? What history was obtained from this source @ -Mother provided all history Did you review nursing and triage notes (agree or disagree)? Why? @ -I reviewed and agree with nursing and triage notes Were old charts reviewed (outside hosp., previous admission, EMS record, old EKG, old radiological studies, urgent care reports/EKG's, usp records)? Report findings @ -No old charts were reviewed Differential Diagnosis (chest pain, altered mental status, abdominal pain women, abdominal pain men, vaginal bleeding, weakness, fever, dyspnea, syncope, headache, dizziness, GI bleed, back pain, seizure, CVA, palpatations, mental health)? @ Differential Abdominal Pain Men: Appendicitis, cholecystitis, diverticulosis, ischemic bowel, pancreatitis, hepatitis, UTI, gastroenteritis, AAA, incarcerated hernia, bowel obstruction, constipation, inflammatory bowel, hepatitis, peptic ulcer disease, splenic infarction, perforated viscus, testicular torsion, this is not meant to be an all-inclusive list EKG interpreted by me (3pts min.). @ -As above X-rays interpreted by me (1pt min.). @ -None done CT interpreted by me (1pt min.). @ -None done U/S interpreted by me (1pt. min.). @ -None done What testing was considered but not performed or refused? (CT, X-rays, U/S, labs)? Why? @ -None What meds were considered but not given or refused? Why? @ -None Did you discuss the management of the patient with other professionals (professionals i.e. , PA, [employer], lab, RT, psych nurse, social media campaign manager, manager school, teacher, special officer, caseworker)? Give summary @ -No Was smoking cessation discussed for >3mins.? @ -No Was critical care preformed (if so, how long)? @ -No Were there social determinants of health that impacted care today? How? (Homelessness, low income, unemployed, alcoholism, drug addiction, transportation, low edu. Level, literacy, decrease access to med. care, penitentiary, rehab)? @ -No Was there de-escalation of care discussed even if they declined (Discuss DNR or withdrawal of care, Hospice)? DNR status @ -No What co-morbidities impacted this encounter? (DM, HTN, Smoking, COPD, CAD, Cancer, CVA, ARF, Chemo, Hep., AIDS, mental health diagnosis, sleep apnea, morbid obesity)? @ -None Was patient admitted / discharged? Hospital course, mention meds given and route, prescriptions, significant lab abnormalities, going to OR and other pertinent info. @ -Patient presenting for vomiting. Patient is nontoxic appearing but does appear dehydrated. Afebrile. There is leukocytosis at 22.6. Other laboratory studies unremarkable. CT of the abdomen and pelvis with contrast shows enteritis and constipation. Case discussed with [facility] patient will be admitted for vomiting and dehydration. Undiagnosed new problem with uncertain prognosis? @ -No Drug Therapy requiring intensive monitoring for toxicity (Heparin, Nitro, Insulin, Cardizem)? @ -No Were any procedures done? @ -No Diagnosis/symptom? @ -vomiting Acute, or Chronic, or Acute on Chronic? @ -acute Uncomplicated (without systemic symptoms) or Complicated (systemic symptoms)? @ -uncomplicated Side effects of treatment? @ -No Exacerbation, Progression, or Severe Exacerbation? @ -No Poses a threat to life or bodily function? How? (Chest pain, USA, NV, pneumonia, PE, COPD, DKA, ARF, appy, cholecystitis, CVA, Diverticulitis, Homicidal, Suicidal, threat to staff... and all critical care pts) @ -No Dr. Rod is my attending (Emily Sandoval) 21 male presenting for nausea vomiting, episodic. Significantly elevated white count positive colitis on computed tomography scan with significant amount of stool. Patient be admitted for clear liquid diet symptom management and hydration. Bowel regimen. Surgical consultation. (William Rod) - Lab Data Lab Results 07/04/22 07/04/22 07/04/22 Range/Units 21:21 22:21 22:21 WBC 22.6 H (3.8-10.6) k/uL RBC 4.87 (4.30-5.90) m/uL Hgb 15.2 (13.0-17.5) gm/dL Hct 44.7 (39.0-53.0) % MCV 91.7 (80.0-100.0) fL MCH 31.3 (25.0-35.0) pg MCHC 34.1 (31.0-37.0) g/dL RDW 13.0 (11.5-15.5) % Plt Count 263 (150-450) k/uL MPV 7.9 Neutrophils % 89 % Lymphocytes % 4 % Monocytes % 5 % Eosinophils % 1 % Basophils % 0 % Neutrophils # 20.0 H (1.3-7.7) k/uL Lymphocytes # 1.0 (1.0-4.8) k/uL Monocytes # 1.2 H (0-1.0) k/uL Eosinophils # 0.1 (0-0.7) k/uL Basophils # 0.1 (0-0.2) k/uL Sodium 139 (137-145) mmol/L Potassium 4.7 (3.5-5.1) mmol/L Chloride 100 (98-107) mmol/L Carbon Dioxide 29 (22-30) mmol/L Anion Gap 10 mmol/L BUN 20 (9-20) mg/dL Creatinine 0.74 (0.66-1.25) mg/dL Est GFR (CKD-EPI)AfAm >90 (>60 ml/min/1.73 sqM) Est GFR (CKD-EPI)NonAf >90 (>60 ml/min/1.73 sqM) Glucose 93 (74-99) mg/dL Plasma Lactic Acid Leighton (0.7-2.0) mmol/L Calcium 9.6 (8.4-10.2) mg/dL Total Bilirubin 0.7 (0.2-1.3) mg/dL AST 38 (17-59) U/L ALT 29 (4-49) U/L Alkaline Phosphatase 68 (38-126) U/L Total Protein 7.6 (6.3-8.2) g/dL Albumin 4.4 (3.5-5.0) g/dL Influenza Type A (PCR) Not Detected (Not Detectd) Influenza Type B (PCR) Not Detected (Not Detectd) RSV (PCR) Not Detected (Not Detectd) SARS-CoV-2 (PCR) Not Detected (Not Detectd) 07/04/22 Range/Units 22:21 WBC (3.8-10.6) k/uL RBC (4.30-5.90) m/uL Hgb (13.0-17.5) gm/dL Hct (39.0-53.0) % MCV (80.0-100.0) fL MCH (25.0-35.0) pg MCHC (31.0-37.0) g/dL RDW (11.5-15.5) % Plt Count (150-450) k/uL MPV Neutrophils % % Lymphocytes % % Monocytes % % Eosinophils % % Basophils % % Neutrophils # (1.3-7.7) k/uL Lymphocytes # (1.0-4.8) k/uL Monocytes # (0-1.0) k/uL Eosinophils # (0-0.7) k/uL Basophils # (0-0.2) k/uL Sodium (137-145) mmol/L Potassium (3.5-5.1) mmol/L Chloride (98-107) mmol/L Carbon Dioxide (22-30) mmol/L Anion Gap mmol/L BUN (9-20) mg/dL Creatinine (0.66-1.25) mg/dL Est GFR (CKD-EPI)AfAm (>60 ml/min/1.73 sqM) Est GFR (CKD-EPI)NonAf (>60 ml/min/1.73 sqM) Glucose (74-99) mg/dL Plasma Lactic Acid Leighton 1.4 (0.7-2.0) mmol/L Calcium (8.4-10.2) mg/dL Total Bilirubin (0.2-1.3) mg/dL AST (17-59) U/L ALT (4-49) U/L Alkaline Phosphatase (38-126) U/L Total Protein (6.3-8.2) g/dL Albumin (3.5-5.0) g/dL Influenza Type A (PCR) (Not Detectd) Influenza Type B (PCR) (Not Detectd) RSV (PCR) (Not Detectd) SARS-CoV-2 (PCR) (Not Detectd) Disposition <Emily Sandoval - Last Filed: 07/05/22 09:53> Is patient prescribed a controlled substance at d/c from ED?: No Time of Disposition: 00:00 <William Rod - Last Filed: 07/07/22 15:53> Clinical Impression: Vomiting, Dehydration, Colitis, Nausea & vomiting, Constipation Disposition: ADMITTED IP TO THIS HOSP Condition: Fair
[2022-07-05] MEDS ORDERED: ONDANSETRON 4 MG/2 ML VIAL IVP PRN (00:02)
[2022-07-05] MEDS ORDERED: NALOXONE 0.4 MG/ML 1 ML VIAL IV PRN ×2 (00:02→00:31)
--- NOTE | 2022-07-05 00:13 | CT ---
EXAM: CT Abdomen and Pelvis With Intravenous Contrast CLINICAL HISTORY: ITS.REASON CT Reason: vomiting TECHNIQUE: Axial computed tomography images of the abdomen and pelvis with intravenous contrast. CTDI is 17.57 mGy and DLP is 990.9 mGy-cm. This CT exam was performed using one or more of the following dose reduction techniques: automated exposure control, adjustment of the mA and/or kV according to patient size, and/or use of iterative reconstruction technique. COMPARISON: 09/22/2021. FINDINGS: Lung bases: Scarring and subsegmental atelectasis noted at the lung bases. Heart: Heart is top normal in size. Mediastinum: Probable distal esophagitis. ABDOMEN: Liver: Fatty infiltration of the liver. Gallbladder and bile ducts: See below. Pancreas: See below. Spleen: Spleen enhances uniformly. Adrenals: The adrenal glands, the head, body, tail of the pancreas, and the gallbladder are unremarkable. Kidneys and ureters: Probable simple renal cysts are noted. No follow up is advised. No renal calculus or hydronephrosis. Stomach and bowel: Moderate quantity of ingested material in the stomach. Wall thickening of loops of small bowel which are fluid-filled. Inflammatory or infectious etiology should be considered. Mild constipation. No obstruction. PELVIS: Appendix: The appendix is seen on coronal image 36 and is unremarkable. Bladder: Unremarkable. No mass. Reproductive: Unremarkable as visualized. ABDOMEN and PELVIS: Intraperitoneal space: Unremarkable. No free air. No significant fluid collection. Bones/joints: No acute fracture. No dislocation. No spondylolysis. Soft tissues: Ischiorectal fat is clean. Vasculature: Portal vein is patent. Flow is noted within the celiac, SMA, the renal arteries, and NIDIA. No abdominal aortic aneurysm. Lymph nodes: Unremarkable. No retroperitoneal lymphadenopathy. Other findings: Elevation of the right hemidiaphragm. IMPRESSION: 1. Enteritis. 2. Consider constipation. 3. The appendix is unremarkable. 4. Gallbladder is unremarkable. 5. No renal calculus or hydronephrosis.
[2022-07-05] MEDS ORDERED: KETOROLAC 15 MG/ML 1 ML VIAL IVP PRN (00:31)
[2022-07-05] MEDS: SODIUM CHLORIDE 0.9% 1,000 ML IV SCH ×5 (00:41→22:33)
[2022-07-05] MEDS ORDERED: PANTOPRAZOLE 40 MG/10 ML VIAL IV SCH (09:00)
--- NOTE | 2022-07-05 09:55 | P.GSCN ---
History of Present Illness Consult date: 07/05/22 Reason for Consult: Nausea and vomiting, enteritis suggested on CT abdomen, leukocytosis History of present illness: Patient is a 21-year-old autistic, nonverbal young man brought to [facility] emergency department late evening hours of 07/04/2022. He was sent in from her [facility] situation and apparently he had a few episodes of emesis earlier that day. His father's available at bedside in tells me for at least the past month patient's been having intermittent issues with dietary tolerance and emesis. Evidence of GI bleeding has not been reported. Patient's unable to provide any history whatsoever, he is nonverbal and noncommunicative at baseline. His father tells in the patient's on a variety of medications including something for appetite suppressant effect. He's never had any manner of abdominal surgery. He's had an entirely hemodynamically stable and afebrile appearance since admission. The only abnormality on laboratory studies was a mild leukocytosis at 20,000 with a left shift but no bandemia. Liver function studies were normal. Computed tomography scan of abdomen and pelvis was obtained, images and official report were reviewed. There is description of some degree of enteritis on the official read but I don't see no such evidence of inflammatory change. Colon has a normal appearance. There is some diffuse air and stool seen throughout the colon. Appendix is nonvisualized. Gallbladder and pancreas have a normal appearance. There may be some degree of fatty infiltration of the liver. No evidence of bowel obstruction, no intra- abdominal free fluid no free air. No evidence of ventral or inguinal hernia seen. Since being admitted to the floor he is remained quite comfortable at rest. No additional bouts of emesis described. No known history of diabetes mellitus. Review of Systems ROS unobtainable: due to mental status - Constitutional Reports as per HPI Past Medical History Additional Past Medical History / Comment(s): autism History of Any Multi-Drug Resistant Organisms: None Reported Additional Past Surgical History / Comment(s): dental surg Past Psychological History: No Psychological Hx Reported Smoking Status: Never smoker Past Alcohol Use History: None Reported Past Drug Use History: None Reported Medications and Allergies Home Medications Medication Instructions Recorded Confirmed Type PARoxetine HCL [PARoxetine HCL ER] 75 mg PO DAILY@0800 06/19/18 07/05/22 History ALPRAZolam [Xanax] 0.25 mg PO DAILY PRN 06/23/22 07/05/22 History Divalproex Sodium [Depakote] 1,000 mg PO HS@199906/23/22 07/05/22 History Divalproex Sodium [Depakote] 500 mg PO DAILY@0800 06/23/22 07/05/22 History LORazepam [Ativan] 1 mg PO DAILY PRN 06/23/22 07/05/22 History Melatonin 5 mg PO HS@199906/23/22 07/05/22 History Naltrexone HCl [Revia] 50 mg PO DAILY@0800 06/23/22 07/05/22 History OLANZapine [OLANZapine Odt] 10 mg PO HS@199906/23/22 07/05/22 History Ondansetron Odt [Zofran Odt] 4 mg PO Q8HR PRN #10 tab 06/23/22 07/05/22 Rx Propranolol [Inderal] 10 mg PO DAILY@1600 06/23/22 07/05/22 History hydrOXYzine pamoate [Vistaril] 50 mg PO BID@0800,199906/23/22 07/05/22 History Docusate [Colace] 100 mg PO BID PRN 07/05/22 07/05/22 History metFORMIN HCL [Glucophage] 500 mg PO DAILY@0807/05/22 07/05/22 History Allergies Allergy/AdvReac Type Severity Reaction Status Date / Time No Known Allergies Allergy Verified 07/05/22 09:08 Surgical - Exam Osteopathic Statement: *. No significant issues noted on an osteopathic structural exam other than those noted in the History and Physical/Consult. Vital Signs Temp Pulse Resp BP Pulse Ox 98.0 F 89 18 123/75 96 07/04/22 20:30 07/04/22 20:30 07/04/22 20:30 07/04/22 20:30 07/04/22 20:30 - General well developed, well nourished, no distress - Eyes PERRL - ENT normal nares - Neck trachea midline - Cardiovascular Rhythm: regular - Abdomen Abdomen is soft, nontender to palpation, no guarding rebound or distention noted abdominal exam is entirely benign. Abdomen: soft, non tender - Psychiatric Patient is nonverbal, noncommunicative, appears comfortable at rest. Father tells me this is his baseline Results - Labs 07/04/22 22:21 07/04/22 22:21 Abnormal Lab Results - Last 24 Hours (Table) 07/04/22 Range/Units 22:21 WBC 22.6 H (3.8-10.6) k/uL Neutrophils # 20.0 H (1.3-7.7) k/uL Monocytes # 1.2 H (0-1.0) k/uL Diabetes panel 07/04/22 Range/Units 22:21 Sodium 139 (137-145) mmol/L Potassium 4.7 (3.5-5.1) mmol/L Chloride 100 (98-107) mmol/L Carbon Dioxide 29 (22-30) mmol/L BUN 20 (9-20) mg/dL Creatinine 0.74 (0.66-1.25) mg/dL Glucose 93 (74-99) mg/dL Calcium 9.6 (8.4-10.2) mg/dL AST 38 (17-59) U/L ALT 29 (4-49) U/L Alkaline Phosphatase 68 (38-126) U/L Total Protein 7.6 (6.3-8.2) g/dL Albumin 4.4 (3.5-5.0) g/dL Calcium panel 07/04/22 Range/Units 22:21 Calcium 9.6 (8.4-10.2) mg/dL Albumin 4.4 (3.5-5.0) g/dL Pituitary panel 07/04/22 Range/Units 22:21 Sodium 139 (137-145) mmol/L Potassium 4.7 (3.5-5.1) mmol/L Chloride 100 (98-107) mmol/L Carbon Dioxide 29 (22-30) mmol/L BUN 20 (9-20) mg/dL Creatinine 0.74 (0.66-1.25) mg/dL Glucose 93 (74-99) mg/dL Calcium 9.6 (8.4-10.2) mg/dL Adrenal panel 07/04/22 Range/Units 22:21 Sodium 139 (137-145) mmol/L Potassium 4.7 (3.5-5.1) mmol/L Chloride 100 (98-107) mmol/L Carbon Dioxide 29 (22-30) mmol/L BUN 20 (9-20) mg/dL Creatinine 0.74 (0.66-1.25) mg/dL Glucose 93 (74-99) mg/dL Calcium 9.6 (8.4-10.2) mg/dL Total Bilirubin 0.7 (0.2-1.3) mg/dL AST 38 (17-59) U/L ALT 29 (4-49) U/L Alkaline Phosphatase 68 (38-126) U/L Total Protein 7.6 (6.3-8.2) g/dL Albumin 4.4 (3.5-5.0) g/dL - Imaging CT scan - abdomen: report reviewed, image reviewed Assessment and Plan Assessment: 21-year-old noncommunicative at autistic and young man with presenting reports of nausea and emesis, intermittent over the past 2 months or so. No evidence of bowel obstruction seen on CT, no significant inflammatory changes found, gallbladder and pancreas of a normal appearance. He's had a hemodynamically stable and afebrile appearance overnight. I suspect his leukocytosis has more to do with acute dehydration than infection. Benign abdominal exam, no evidence of peritonitis, no evidence of septic process. I suspect that his presentation has more to do with medication intolerance given the chronicity thereof in his absence of heart findings on imaging or exam. He is maintained on Depakote and paroxetine, both of which can cause nausea. No indication for surgical or endoscopic interventions seen. Plan: Continue with IV fluids, medical management. We'll reassess at your request. Recommend a full review of his outpatient medications and potential adjustments if possible to wean back some of the medications that could be contributing to nausea. Time with Patient: Greater than 30
[2022-07-05 10:56] LABS: Basophils % (A) 0 %; Eosinophils # (A) 0.1 k/uL (0-0.7); Eosinophils % (A) 1 %; HCT 38.9 % (39.0-53.0); HGB 13.6 gm/dL (13.0-17.5); Lymphocytes # (A) 1.5 k/uL (1.0-4.8); Lymphocytes % (A) 9 %; MCH 32.4 pg (25.0-35.0); MCV 92.7 fL (80.0-100.0); Mean Platelet Volume 7.9; Monocytes # (A) 1.3 k/uL (0-1.0); Monocytes % (A) 8 %; Neutrophils # (A) 12.6 k/uL (1.3-7.7); Neutrophils % (A) 80 %; Platelet Count 213 k/uL (150-450); WBC 15.8 k/uL (3.8-10.6)
[2022-07-05 11:08] LABS: ALT 21 U/L (4-49); AST 25 U/L (17-59); African American GFR (CKD) >90 (>60 ml/min/1.73 sqM); Albumin 3.6 g/dL (3.5-5.0); Albumin/Globulin Ratio 1.4; Alkaline Phosphatase 61 U/L (38-126); Anion Gap 10 mmol/L; Blood Urea Nitrogen 16 mg/dL (9-20); Calcium 8.8 mg/dL (8.4-10.2); Carbon Dioxide 27 mmol/L (22-30); Chloride 101 mmol/L (98-107); Globulin 2.6 g/dL; Glucose 69 mg/dL (74-99); Non-African American GFR(CKD) >90 (>60 ml/min/1.73 sqM); Potassium 4.1 mmol/L (3.5-5.1); Sodium 138 mmol/L (137-145); Total Bilirubin 0.8 mg/dL (0.2-1.3); Total Protein 6.2 g/dL (6.3-8.2)
[2022-07-05] MEDS ORDERED: LORazepam 1 MG TAB PO PRN (14:08)
[2022-07-05] MEDS ORDERED: ALPRAZolam 0.25 MG TAB PO PRN (14:08)
--- NOTE | 2022-07-05 14:09 | P.HPIM ---
History of Present Illness H&P Date: 07/05/22 History of present illness; patient is a 21 year old autistic gentleman who is nonverbal brought in to the ER from his correction after having vomiting and abdominal pain. Patient has been evaluated couple of times in the the last 2 months with similar complaints. [facility] staff noticed that the patient has been more tired and has been vomiting. There was no complain of any fever or chills. No complain of chest pain or shortness of breath Initial workup done in the ER showed white count of 22.6, hemoglobin 15.2, patient count 263, sodium 139, potassium 4.7, BUN 20, creatinine 0.74 CT abdominal and pelvis done showed entritis and constipation REVIEW OF SYSTEMS: Review of systems cannot be obtained as patient is autistic and nonverbal PHYSICAL EXAMINATION: GENERAL: The patient is alert, nonverbal, not in any acute distress. Well developed, well nourished. HEENT: Pupils are round and equally reacting to light. EOMI. No scleral icterus. No conjunctival pallor. Normocephalic, atraumatic. No pharyngeal erythema. No thyromegaly. CARDIOVASCULAR: S1 and S2 present. No murmurs, rubs, or gallops. PULMONARY: Chest is clear to auscultation, no wheezing or crackles. ABDOMEN: Soft, nontender, nondistended, normoactive bowel sounds. No palpable organomegaly. MUSCULOSKELETAL: No joint swelling or deformity. EXTREMITIES: No cyanosis, clubbing, or pedal edema. NEUROLOGICAL: Gross neurological examination did not reveal any focal deficits. SKIN: No rashes. Assessment and plan Acute colitis Leukocytosis History of autism Plan; monitor vital signs Monitor CBC Monitor CMP Continue IV fluids Continue antiemetics Continue home meds Surgery consulted Past Medical History Additional Past Medical History / Comment(s): autism History of Any Multi-Drug Resistant Organisms: None Reported Additional Past Surgical History / Comment(s): dental surg Past Psychological History: No Psychological Hx Reported Smoking Status: Never smoker Past Alcohol Use History: None Reported Past Drug Use History: None Reported Medications and Allergies Home Medications Medication Instructions Recorded Confirmed Type PARoxetine HCL [PARoxetine HCL ER] 75 mg PO DAILY@0800 06/19/18 07/05/22 History ALPRAZolam [Xanax] 0.25 mg PO DAILY PRN 06/23/22 07/05/22 History Divalproex Sodium [Depakote] 1,000 mg PO HS@199906/23/22 07/05/22 History Divalproex Sodium [Depakote] 500 mg PO DAILY@0800 06/23/22 07/05/22 History LORazepam [Ativan] 1 mg PO DAILY PRN 06/23/22 07/05/22 History Naltrexone HCl [Revia] 50 mg PO DAILY@0800 06/23/22 07/05/22 History OLANZapine [OLANZapine Odt] 10 mg PO HS@199906/23/22 07/05/22 History Ondansetron Odt [Zofran Odt] 4 mg PO Q8HR PRN #10 tab 06/23/22 07/05/22 Rx Propranolol [Inderal] 10 mg PO DAILY@1600 06/23/22 07/05/22 History RX: Melatonin 5 mg PO HS@199906/23/22 07/05/22 History hydrOXYzine pamoate [Vistaril] 50 mg PO BID@0800,199906/23/22 07/05/22 History Docusate [Colace] 100 mg PO BID PRN 07/05/22 07/05/22 History RX: metFORMIN HCL [Glucophage] 500 mg PO DAILY@0800 07/05/22 07/05/22 History Allergies Allergy/AdvReac Type Severity Reaction Status Date / Time No Known Allergies Allergy Verified 07/05/22 09:08 Physical Exam Vitals: Vital Signs Temp Pulse Pulse Resp BP BP Pulse Ox 07/05/22 07:24 98.3 F 96 17 116/73 96 07/05/22 02:00 99.1 F 93 18 124/80 97 07/04/22 23:23 88 16 142/89 98 07/04/22 20:30 98.0 F 89 18 123/75 96 Intake and Output 07/04/22 07/05/22 07/05/22 22:59 06:59 14:59 Other: # Voids 2 Weight 95.254 kg 95.254 kg Results CBC & Chem 7: 07/05/22 10:24 07/05/22 10:24 Labs: Abnormal Lab Results - Last 24 Hours (Table) 07/04/22 Range/Units 22:21 WBC 22.6 H (3.8-10.6) k/uL Neutrophils # 20.0 H (1.3-7.7) k/uL Monocytes # 1.2 H (0-1.0) k/uL Thrombosis Risk Factor Assmnt - Choose All That Apply Any of the Below Risk Factors Present?: Yes Each Factor Represents 1 point: Obesity (BMI >25) Other Risk Factors: No Other congenital or acquired thrombophilia - If yes, enter type in comment: No Thrombosis Risk Factor Assessment Total Risk Factor Score: 1 Thrombosis Risk Factor Assessment Level: Low Risk
[2022-07-05] MEDS: DOCUSATE 100 MG CAP PO PRN (17:36)
[2022-07-05] MEDS: PROPRANOLOL 10 MG TAB PO SCH (17:36)
[2022-07-05] MEDS: MELATONIN 5 MG TABLET PO SCH (20:33)
[2022-07-05] MEDS: OLANZapine ODT 10 MG TAB PO SCH (20:33)
[2022-07-05] MEDS: hydrOXYzine pamoate 25 MG CAP PO SCH (20:33)
[2022-07-05] MEDS: DIVALPROEX 500 MG TABLET.DR PO SCH (20:33)
[2022-07-06] MEDS: NALTREXONE HCL 50 MG TAB PO SCH (08:27)
[2022-07-06] MEDS: PANTOPRAZOLE 40 MG TABLET PO SCH (08:28)
[2022-07-06] MEDS: hydrOXYzine pamoate 25 MG CAP PO SCH ×2 (08:28→20:47)
[2022-07-06] MEDS: PARoxetine 20 MG TAB PO SCH (08:29)
[2022-07-06] MEDS: metFORMIN 500 MG TAB PO SCH (08:29)
[2022-07-06] MEDS: DIVALPROEX 500 MG TABLET.DR PO SCH ×2 (08:29→20:47)
[2022-07-06] MEDS: DOCUSATE 100 MG CAP PO PRN ×2 (08:40→20:48)
[2022-07-06 08:58] LABS: Basophils # (A) 0.02 X 10*3/uL (0.00-0.10); Basophils % (A) 0.2 %; Eosinophils # (A) 0.07 X 10*3/uL (0.04-0.35); Eosinophils % (A) 0.6 %; HCT 39.2 % (39.6-50.0); HGB 13.4 g/dL (13.0-17.0); Immature Grans, Automated 0.5 %; Lymphocytes # (A) 2.03 X 10*3/uL (0.90-5.00); Lymphocytes % (A) 16.3 %; MCH 31.5 pg (27.0-32.0); MCHC 34.2 g/dL (32.0-37.0); Mean Platelet Volume 10.7 fL (9.5-12.2); Monocytes # (A) 1.44 X 10*3/uL (0.20-1.00); Monocytes % (A) 11.6 %; NRBC Per 100 WBC 0 /100 WBCS (0.0-0.0); Neutrophils # (A) 8.83 X 10*3/uL (1.80-7.70); Neutrophils % (A) 70.8 %; Platelet Count 203 X 10*3/uL (140-440); RBC 4.26 X 10*6/uL (4.40-5.60); RDW 13.2 % (11.5-14.5); WBC 12.45 X 10*3/uL (4.50-10.00)
[2022-07-06 08:59] LABS: Albumin 3.6 g/dL (3.8-4.9); Albumin/Globulin Ratio 1.64 (1.60-3.17); Anion Gap 10.9 mmol/L (10.00-18.00); BUN/Creat Ratio 13.88 Ratio (12.00-20.00); Blood Urea Nitrogen 11.1 mg/dL (9.0-27.0); Carbon Dioxide 26.1 mmol/L (20.0-27.5); Globulin 2.2 g/dL (1.6-3.3); Non-African American GFR(CKD) 126.8 (60.0-200.0); Total Bilirubin 0.4 mg/dL (0.30-1.20); Total Protein 5.8 g/dL (6.2-8.2)
[2022-07-06] MEDS: SODIUM CHLORIDE 0.9% 1,000 ML IV SCH (12:15)
--- NOTE | 2022-07-06 13:47 | P.PN ---
Subjective Progress Note Date: 07/06/22 patient is a 21 year old autistic gentleman who is nonverbal brought in to the ER from his residential after having vomiting and abdominal pain. Patient has been evaluated couple of times in the the last 2 months with similar complaints. [facility] staff noticed that the patient has been more tired and has been vomiting. There was no complain of any fever or chills. No complain of chest pain or shortness of breath Initial workup done in the ER showed white count of 22.6, hemoglobin 15.2, patient count 263, sodium 139, potassium 4.7, BUN 20, creatinine 0.74 CT abdominal and pelvis done showed entritis and constipation 07/06. Patient seen and examined.lab work showed WBC 12.45, hemoglobin 13.4, p latelet count 203, sodium 138, potassium 4, BUN and 11.1, creatinine 0.8.. Mom at the bedside. States that he has not been drinking much, we'll start patient on IV fluids REVIEW OF SYSTEMS: patient has baseline autism PHYSICAL EXAMINATION: GENERAL: The patient is alert, nonverbal, not in any acute distress. Well developed, well nourished. HEENT: Pupils are round and equally reacting to light. EOMI. No scleral icterus. No conjunctival pallor. Normocephalic, atraumatic. No pharyngeal erythema. No thyromegaly. CARDIOVASCULAR: S1 and S2 present. No murmurs, rubs, or gallops. PULMONARY: Chest is clear to auscultation, no wheezing or crackles. ABDOMEN: Soft, nontender, nondistended, normoactive bowel sounds. No palpable organomegaly. MUSCULOSKELETAL: No joint swelling or deformity. EXTREMITIES: No cyanosis, clubbing, or pedal edema. NEUROLOGICAL: Gross neurological examination did not reveal any focal deficits. SKIN: No rashes. Assessment and plan Acute colitis Leukocytosis History of autism Monitor vital signs Monitor CBC Monitor CMP Continue IV fluids Continue antiemetics currently on clear liquid diet, advance diet as tolerated Surgery following the patient Objective - Vital Signs Vital signs: Vital Signs Temp 98.2 F 07/06/22 07:01 Pulse 88 07/06/22 07:01 Resp 16 07/06/22 07:01 BP 112/66 07/06/22 07:01 Pulse Ox 95 07/06/22 07:01 FiO2 Intake & Output 07/05/22 07/06/22 07/06/22 18:59 06:59 18:59 Intake Total 2160 Balance 2160 Intake: Oral 2160 Other: Voiding Method Toilet Toilet Diaper # Voids 4 2 1 - Labs CBC & Chem 7: 07/06/22 04:04 07/06/22 04:04 Labs: Abnormal Lab Results - Last 24 Hours (Table) 07/05/22 07/05/22 07/06/22 Range/Units 10:24 10:24 04:04 WBC 15.8 H 12.45 H (3.8-10.6) k/uL RBC 4.20 L 4.26 L (4.30-5.90) m/uL Hct 38.9 L 39.2 L (39.0-53.0) % Immature Gran # 0.06 H (0.00-0.04) X 10*3/uL Neutrophils # 12.6 H 8.83 H (1.3-7.7) k/uL Monocytes # 1.3 H 1.44 H (0-1.0) k/uL Glucose 69 L (74-99) mg/dL Total Protein 6.2 L (6.3-8.2) g/dL Albumin (3.8-4.9) g/dL 07/06/22 Range/Units 04:04 WBC (3.8-10.6) k/uL RBC (4.30-5.90) m/uL Hct (39.0-53.0) % Immature Gran # (0.00-0.04) X 10*3/uL Neutrophils # (1.3-7.7) k/uL Monocytes # (0-1.0) k/uL Glucose (74-99) mg/dL Total Protein 5.8 L (6.3-8.2) g/dL Albumin 3.6 L (3.8-4.9) g/dL
[2022-07-06] MEDS: PROPRANOLOL 10 MG TAB PO SCH (16:22)
[2022-07-06] MEDS: OLANZapine ODT 10 MG TAB PO SCH (20:48)
[2022-07-06] MEDS: MELATONIN 5 MG TABLET PO SCH (20:48)
[2022-07-07 03:26] VITALS: RESP 16
[2022-07-07] MEDS: SODIUM CHLORIDE 0.9% 1,000 ML IV SCH ×2 (07:56→16:26)
[2022-07-07] MEDS: metFORMIN 500 MG TAB PO SCH (07:57)
[2022-07-07] MEDS: hydrOXYzine pamoate 25 MG CAP PO SCH (07:57)
[2022-07-07] MEDS: PARoxetine 20 MG TAB PO SCH (07:58)
[2022-07-07] MEDS: DIVALPROEX 500 MG TABLET.DR PO SCH (07:58)
[2022-07-07] MEDS: NALTREXONE HCL 50 MG TAB PO SCH (07:58)
[2022-07-07] MEDS: PANTOPRAZOLE 40 MG TABLET PO SCH (07:58)
[2022-07-07] MEDS ORDERED: bisacodyL 10 MG SUPP RECTAL ONE (09:00)
[2022-07-07 14:11] VITALS: PULSE 85; TEMP 99
[2022-07-07 14:12] VITALS: BP 157/82
[2022-07-07] MEDS: PROPRANOLOL 10 MG TAB PO SCH (16:33)
== END 2022-07-07 16:22 | disposition home or self-care (01) ==
LOC: EC 19:19 → 4SSUR 07-05 00:02
PROVIDERS: ADMIT Hospitalist; ATTEND Hospitalist
DX: K52.9 Noninfective gastroenteritis and colitis, unspecified (principal); E86.0 Dehydration; K59.00 Constipation, unspecified; F84.0 Autistic disorder; D72.829 Elevated white blood cell count, unspecified; R05.9 Cough, unspecified; E66.9 Obesity, unspecified; Z68.30 Body mass index [BMI] 30.0-30.9, adult; Z20.822 Contact with and (suspected) exposure to COVID-19; Z79.84 Long term (current) use of oral hypoglycemic drugs; Z79.899 Other long term (current) drug therapy
CPT/HCPCS: 96376; 96361; 96374; 96375; 99285; 36415; 80053 ×3; 83605; 85025 ×3; 87636; 74177; G0378 ×3; J2405; C9113 ×2; Q9967

== ENCOUNTER 2022-07-14 00:27 | Observation (INO) | payer BC, OTHER ==
[2022-07-14 01:34] VITALS: RESP 16
[2022-07-14 04:44] LABS: Basophils # (A) 0.1 k/uL (0-0.2); Basophils % (A) 0 %; Eosinophils # (A) 0.1 k/uL (0-0.7); Eosinophils % (A) 0 %; HGB 16.3 gm/dL (13.0-17.5); Lymphocytes # (A) 0.8 k/uL (1.0-4.8); Lymphocytes % (A) 4 %; MCH 30.7 pg (25.0-35.0); MCHC 33.9 g/dL (31.0-37.0); MCV 90.4 fL (80.0-100.0); Mean Platelet Volume 8.3; Monocytes # (A) 1.2 k/uL (0-1.0); Monocytes % (A) 6 %; Neutrophils # (A) 19.7 k/uL (1.3-7.7); Neutrophils % (A) 90 %; Platelet Count 301 k/uL (150-450); RBC 5.31 m/uL (4.30-5.90); RDW 13.5 % (11.5-15.5)
[2022-07-14 04:55] LABS: ALT 31 U/L (4-49); AST 31 U/L (17-59); African American GFR (CKD) >90 (>60 ml/min/1.73 sqM); Albumin 4.6 g/dL (3.5-5.0); Alkaline Phosphatase 66 U/L (38-126); Anion Gap 10 mmol/L; Blood Urea Nitrogen 11 mg/dL (9-20); Carbon Dioxide 27 mmol/L (22-30); Chloride 105 mmol/L (98-107); Glucose 115 mg/dL (74-99); Lipase 49 U/L (23-300); Magnesium 1.6 mg/dL (1.6-2.3); Non-African American GFR(CKD) >90 (>60 ml/min/1.73 sqM); Potassium 4.7 mmol/L (3.5-5.1); Sodium 142 mmol/L (137-145); Total Bilirubin 0.6 mg/dL (0.2-1.3); Total Protein 7.9 g/dL (6.3-8.2)
[2022-07-14] MEDS ORDERED: ONDANSETRON 4 MG/2 ML VIAL IVP STA (05:04)
[2022-07-14] MEDS ORDERED: SODIUM CHLORIDE 0.9% 1,000 ML IV ONE (05:04)
[2022-07-14] MEDS ORDERED: NALOXONE 0.4 MG/ML 1 ML VIAL IV PRN (06:26)
--- NOTE | 2022-07-14 06:27 | ED ---
General Adult HPI - General Chief complaint: Nausea/Vomiting/Diarrhea Stated complaint: NVD Time Seen by Provider: 07/14/22 04:21 Source: patient Mode of arrival: ambulatory Limitations: no limitations - History of Present Illness Initial comments: This is a 21-year-old male who is nonverbal and autistic presents emergency department with his father for concerns for nausea, vomiting and decreased appetite. The patient does of the senior living and the father was called because the patient had nausea, vomiting and diarrhea as well as not acting appropriate. The patient was recently admitted to the hospital last week for similar complaints. The patient himself did not complain of any acute pain or distress but was nonverbal. The patient did not act as if he was in any acute distress. The patient's father did state that since he has been brought into the emergency department, he does seem to have improved. The patient was playing on his eye p ad without any acute distress and no further history could be obtained. It was reported that the patient has had issues with nausea, vomiting and diarrhea over the last several months but has been worsening. It was reported that the patient is on multiple different medications that could be causing these side effects. - Related Data Home Medications Medication Instructions Recorded Confirmed PARoxetine HCL [PARoxetine HCL ER] 75 mg PO DAILY@0800 06/19/18 07/05/22 ALPRAZolam [Xanax] 0.25 mg PO DAILY PRN 06/23/22 07/05/22 Divalproex Sodium [Depakote] 1,000 mg PO HS@199906/23/22 07/05/22 Divalproex Sodium [Depakote] 500 mg PO DAILY@0806/23/22 07/05/22 LORazepam [Ativan] 1 mg PO DAILY PRN 06/23/22 07/05/22 Melatonin 5 mg PO HS@199906/23/22 07/05/22 Naltrexone HCl [Revia] 50 mg PO DAILY@0800 06/23/22 07/05/22 OLANZapine [OLANZapine Odt] 10 mg PO HS@199906/23/22 07/05/22 Propranolol [Inderal] 10 mg PO DAILY@1600 06/23/22 07/05/22 hydrOXYzine pamoate [Vistaril] 50 mg PO BID@0800,2000 05/10/23 05/22/23 Docusate [Colace] 100 mg PO BID PRN 07/05/22 07/05/22 metFORMIN HCL [Glucophage] 500 mg PO DAILY@0800 07/05/22 07/05/22 Previous Rx's Medication Instructions Recorded Ondansetron Odt [Zofran ODT] 4 mg PO Q8HR PRN #10 tab 06/23/22 Pantoprazole [Protonix] 40 mg PO AC-BRKFST #30 tab 07/07/22 Allergies Allergy/AdvReac Type Severity Reaction Status Date / Time No Known Allergies Allergy Verified 07/14/22 01:30 Review of Systems ROS Statement: Those systems with pertinent positive or pertinent negative responses have been documented in the HPI. Limitations: ROS unobtainable due to patients medical condition (Due to nonverbal autistic state) Past Medical History Additional Past Medical History / Comment(s): autism History of Any Multi-Drug Resistant Organisms: None Reported Additional Past Surgical History / Comment(s): dental surg Past Psychological History: No Psychological Hx Reported Smoking Status: Never smoker Past Alcohol Use History: None Reported Past Drug Use History: None Reported General Exam Limitations: physical limitation (Nonverbal, autistic) General appearance: alert, in no apparent distress Head exam: Present: atraumatic, normocephalic, normal inspection Eye exam: Present: normal appearance, PERRL Pupils: Present: normal accommodation ENT exam: Present: normal exam, normal oropharynx, mucous membranes moist Neck exam: Present: normal inspection, full ROM Respiratory exam: Present: normal lung sounds bilaterally Cardiovascular Exam: Present: regular rate, normal rhythm, normal heart sounds GI/Abdominal exam: Present: soft, normal bowel sounds Extremities exam: Present: normal inspection, full ROM Back exam: Present: normal inspection, full ROM Neurological exam: Present: alert, other (At baseline, nonverbal, autistic) Psychiatric exam: Present: normal affect, normal mood Skin exam: Present: warm, dry Course Vital Signs 07/14/22 01:30 Temperature 98.2 F Pulse Rate 102 H Respiratory 16 Rate Blood Pressure 105/74 O2 Sat by Pulse 98 Oximetry Medical Decision Making - Medical Decision Making Was pt. sent in by a medical professional or institution (, PA, CEMENT MIXER, urgent care, hospital, or fdc...) When possible be specific @ -No Did you speak to anyone other than the patient for history (EMS, parent, family, police, friend...)? What history was obtained from this source @ -Yes, patient's father was at the bedside who confirmed that the patient had continued nausea, vomiting and diarrhea and was presents emergency department last week with similar episodes. He did state that the patient seemed to have improved while in the emergency department however did state he was on multiple different medications that these side effects. Did you review nursing and triage notes (agree or disagree)? Why? @ -I reviewed and agree with nursing and triage notes Were old charts reviewed (outside hosp., previous admission, EMS record, old EKG, old radiological studies, urgent care reports/EKG's, fdc records)? Report findings @ -No old charts were reviewed Differential Diagnosis (chest pain, altered mental status, abdominal pain women, abdominal pain men, vaginal bleeding, weakness, fever, dyspnea, syncope, headache, dizziness, GI bleed, back pain, seizure, CVA, palpatations, mental health)? @ -Dehydration, gastroenteritis, URI EKG interpreted by me (3pts min.). @ -None X-rays interpreted by me (1pt min.). @ -None done CT interpreted by me (1pt min.). @ -None done U/S interpreted by me (1pt. min.). @ -None done What testing was considered but not performed or refused? (CT, X-rays, U/S, labs)? Why? @ -None What meds were considered but not given or refused? Why? @ -None Did you discuss the management of the patient with other professionals (professionals i.e. , PA, CEMENT M[employer]ER, lab, RT, psych nurse, manager social work, rack cleaner, teacher, chief fundraising officer, case management manager)? Give summary @ -Yes, admitting physician was contacted regarding patient's admission. Was smoking cessation discussed for >3mins.? @ -No Was critical care preformed (if so, how long)? @ -No Were there social determinants of health that impacted care today? How? (Homelessness, low income, unemployed, alcoholism, drug addiction, transportation, low edu. Level, literacy, decrease access to med. care, care home, rehab)? @ -No Was there de-escalation of care discussed even if they declined (Discuss DNR or withdrawal of care, Hospice)? DNR status @ -No What co-morbidities impacted this encounter? (DM, HTN, Smoking, COPD, CAD, C ancer, CVA, ARF, Chemo, Hep., AIDS, mental health diagnosis, sleep apnea, morbid obesity)? @ -Nonverbal autism Was patient admitted / discharged? Hospital course, mention meds given and route, prescriptions, significant lab abnormalities, going to OR and other p ertinent info. @ -The patient was seen and evaluated emergency department. Physical exam, the patient was resting in bed without any acute distress. Vital signs admission were stable. Due to the nature the patient's complaints, laboratory workup was obtained that showed a significant leukocytosis similar to his previous episode. The patient likely had signs of dehydration as well and did receive 1 L no sealing fluid as well as 4 mg of Zofran. Due to the patient's significant leukocytosis and dehydration, the patient will once again be admitted for further workup and hydration. The patient and his father were agreeable to this. The patient's primary care physician was being covered by [facility] and Dr. Miner was contacted and accepted the patient for admission. The patient was admitted in stable condition. Undiagnosed new problem with uncertain prognosis? @ -No Drug Therapy requiring intensive monitoring for toxicity (Heparin, Nitro, Insulin, Cardizem)? @ -No Were any procedures done? @ -No Diagnosis/symptom? @ -Dehydration and leukocytosis likely secondary to nausea, vomiting and diarrhea Acute, or Chronic, or Acute on Chronic? @ -Acute on chronic Uncomplicated (without systemic symptoms) or Complicated (systemic symptoms)? @ -Complicated Side effects of treatment? @ -No Exacerbation, Progression, or Severe Exacerbation? @ -No Poses a threat to life or bodily function? How? (Chest pain, [place], [place], pneumonia, PE, COPD, DKA, ARF, appy, cholecystitis, CVA, Diverticulitis, Homicidal, Suicidal, threat to staff... and all critical care pts) @ -Yes, continued dehydration and leukocytosis can lead to permanent damage and possible . - Lab Data Result diagrams: 07/14/22 04:38 07/14/22 04:38 Lab Results 07/14/22 07/14/22 Range/Units 04:38 04:38 WBC 22.0 H (3.8-10.6) k/uL RBC 5.31 (4.30-5.90) m/uL Hgb 16.3 (13.0-17.5) gm/dL Hct 48.0 (39.0-53.0) % MCV 90.4 (80.0-100.0) fL MCH 30.7 (25.0-35.0) pg MCHC 33.9 (31.0-37.0) g/dL RDW 13.5 (11.5-15.5) % Plt Count 301 (150-450) k/uL MPV 8.3 Neutrophils % 90 % Lymphocytes % 4 % Monocytes % 6 % Eosinophils % 0 % Basophils % 0 % Neutrophils # 19.7 H (1.3-7.7) k/uL Lymphocytes # 0.8 L (1.0-4.8) k/uL Monocytes # 1.2 H (0-1.0) k/uL Eosinophils # 0.1 (0-0.7) k/uL Basophils # 0.1 (0-0.2) k/uL Sodium 142 (137-145) mmol/L Potassium 4.7 (3.5-5.1) mmol/L Chloride 105 (98-107) mmol/L Carbon Dioxide 27 (22-30) mmol/L Anion Gap 10 mmol/L BUN 11 (9-20) mg/dL Creatinine 0.77 (0.66-1.25) mg/dL Est GFR (CKD-EPI)AfAm >90 (>60 ml/min/1.73 sqM) Est GFR (CKD-EPI)NonAf >90 (>60 ml/min/1.73 sqM) Glucose 115 H (74-99) mg/dL Calcium 10.0 (8.4-10.2) mg/dL Magnesium 1.6 (1.6-2.3) mg/dL Total Bilirubin 0.6 (0.2-1.3) mg/dL AST 31 (17-59) U/L ALT 31 (4-49) U/L Alkaline Phosphatase 66 (38-126) U/L Total Protein 7.9 (6.3-8.2) g/dL Albumin 4.6 (3.5-5.0) g/dL Lipase 49 (23-300) U/L Disposition Clinical Impression: Dehydration, Leukocytosis Disposition: ADMITTED IP TO THIS HOSP Condition: Stable Is patient prescribed a controlled substance at d/c from ED?: No Referrals: Lenora Locke MD [Primary Care Provider] - 1-2 days Time of Disposition: 06:00 Decision to Admit Reason: Admit from EC Decision Date: 07/14/22 Decision Time: 06:00
[2022-07-14] MEDS ORDERED: SODIUM CHLORIDE 0.9% 1,000 ML IV SCH (06:30)
[2022-07-14] MEDS ORDERED: DOCUSATE 100 MG CAP PO PRN (12:48)
[2022-07-14] MEDS ORDERED: ALPRAZolam 0.25 MG TAB PO PRN (12:48)
--- NOTE | 2022-07-14 12:48 | P.HPIM ---
History of Present Illness 21-year-old pleasant male with the autism and nonverbal came in with a recurrent nausea vomiting is the second time patient is being admitted for the same complaint in the past patient was diagnosed with colitis was treated for colitis and subsequently discharged home comes back again with same symptoms. Patient was started on 3 medications recently. The temporal association of starting his medications and a recurrent nausea vomiting. I'm in the process of clarifying what these medications are from family. REVIEW OF SYSTEMS: Unable to obtain PHYSICAL EXAMINATION: GENERAL: The patient is alert and nonverbal, not in any acute distress. Well developed, well nourished. HEENT: Pupils are round and equally reacting to light. EOMI. No scleral icterus. No conjunctival pallor. Normocephalic, atraumatic. No pharyngeal erythema. No thyromegaly. CARDIOVASCULAR: S1 and S2 present. No murmurs, rubs, or gallops. PULMONARY: Chest is clear to auscultation, no wheezing or crackles. ABDOMEN: Soft, nontender, nondistended, normoactive bowel sounds. No palpable organomegaly. MUSCULOSKELETAL: No joint swelling or deformity. EXTREMITIES: No cyanosis, clubbing, or pedal edema. NEUROLOGICAL: Gross neurological examination did not reveal any focal deficits. SKIN: No rashes. Assessment and plan -Nausea vomiting probably secondary to 3 Medications that he does of which are not available will obtain the details his medications will be held and patient will be monitored probably due to be discharged later today or tomorrow. Patient will restart back on diet -Autism Hyperleukocytosis reactive without any evidence of infection and this is secondary to nausea vomiting DVT prophylaxis: Early ambulation Past Medical History Additional Past Medical History / Comment(s): autism History of Any Multi-Drug Resistant Organisms: None Reported Additional Past Surgical History / Comment(s): dental surg Past Anesthesia/Blood Transfusion Reactions: No Reported Reaction Past Psychological History: No Psychological Hx Reported Smoking Status: Never smoker Past Alcohol Use History: None Reported Past Drug Use History: None Reported Medications and Allergies Home Medications Medication Instructions Recorded Confirmed Type PARoxetine HCL [PARoxetine HCL ER] 75 mg PO DAILY@0800 06/19/18 07/14/22 History ALPRAZolam [Xanax] 0.25 mg PO DAILY PRN 06/23/22 07/14/22 History Divalproex Sodium [Depakote] 1,000 mg PO HS@199906/23/22 07/14/22 History Divalproex Sodium [Depakote] 500 mg PO DAILY@0800 06/23/22 07/14/22 History LORazepam [Ativan] 1 mg PO DAILY PRN 06/23/22 07/14/22 History Melatonin 5 mg PO HS@199906/23/22 07/14/22 History Naltrexone HCl [Revia] 50 mg PO DAILY@0800 06/23/22 07/14/22 History OLANZapine [OLANZapine Odt] 10 mg PO HS@199906/23/22 07/14/22 History Ondansetron Odt [Zofran ODT] 4 mg PO Q8HR PRN #10 tab 06/23/22 07/14/22 Rx Propranolol [Inderal] 10 mg PO DAILY@1600 06/23/22 07/14/22 History Docusate [Colace] 100 mg PO BID PRN 07/05/22 07/14/22 History metFORMIN HCL [Glucophage] 500 mg PO DAILY@0800 07/05/22 07/14/22 History Pantoprazole [Protonix] 40 mg PO DAILY@0807/14/22 07/14/22 History hydrOXYzine pamoate [Vistaril] 50 mg PO BID@0800,199907/14/22 07/14/22 History Allergies Allergy/AdvReac Type Severity Reaction Status Date / Time No Known Allergies Allergy Verified 07/14/22 10:13 Physical Exam Vitals: Vital Signs Temp Pulse Resp BP BP Pulse Ox 07/14/22 08:01 98.1 F 16 124/81 98 07/14/22 06:26 79 16 99/82 99 07/14/22 01:30 98.2 F 102 H 16 105/74 98 Intake and Output 07/13/22 07/14/22 07/14/22 22:59 06:59 14:59 Other: Weight 87.543 kg 87.543 kg Results CBC & Chem 7: 07/14/22 04:38 07/14/22 04:38 Labs: Abnormal Lab Results - Last 24 Hours (Table) 07/14/22 07/14/22 Range/Units 04:38 04:38 WBC 22.0 H (3.8-10.6) k/uL Neutrophils # 19.7 H (1.3-7.7) k/uL Lymphocytes # 0.8 L (1.0-4.8) k/uL Monocytes # 1.2 H (0-1.0) k/uL Glucose 115 H (74-99) mg/dL Thrombosis Risk Factor Assmnt - Choose All That Apply Any of the Below Risk Factors Present?: No Other Risk Factors: No Other congenital or acquired thrombophilia - If yes, enter type in comment: No Thrombosis Risk Factor Assessment Level: Very Low Risk
[2022-07-14 16:31] VITALS: BP 114/75; PULSE 70; TEMP 97.6
[2022-07-14] MEDS ORDERED: DIVALPROEX 500 MG TABLET.DR PO SCH (20:00)
[2022-07-14] MEDS ORDERED: OLANZapine ODT 10 MG TAB PO SCH (20:00)
[2022-07-15] MEDS ORDERED: PANTOPRAZOLE 40 MG TABLET PO SCH (08:00)
[2022-07-15] MEDS ORDERED: DIVALPROEX 500 MG TABLET.DR PO SCH (08:00)
[2022-07-15] MEDS ORDERED: PARoxetine 20 MG TAB PO SCH (08:00)
--- NOTE | 2022-07-16 15:25 | P.DS ---
Providers Date of admission: 07/14/22 06:26 Attending physician: Dawood Miner MD Primary care physician: Lenora Locke [facility] Course: Final Diagnosis -Nausea vomiting likely due to being started on metformin outpatient. -Autism -leukocytosis reactive without any evidence of infection and this is secondary to nausea vomiting Discharge Disposition Patient is stable for discharge back to the assisted. Patient recommending to discontinue metformin on discharge this is likely the cause of the GI symptoms. Primary care provider to follow up regarding oral antihyperglycemic agents on discharge. F/U CBC in 2 to 3 days. Hospital Course 21-year-old pleasant male with the autism and nonverbal came in with a recurrent nausea vomiting is the second time patient is being admitted for the same complaint in the past patient was diagnosed with colitis was treated for colitis and subsequently discharged home comes back again with same symptoms. Patient was started on metformin recently which is likely the cause of the GI symptoms. On examination patient is nontender soft with normoactive bowel sounds. He has white count of 22 and this is likely reactive to the nausea vomiting with no signs of infection at this time. Recommending to D/C metformin and diet was advanced. Patient to follow up labs on DC. A depakote level was checked and is in therapeutic range. Patient stable for DC back to the [facility]. Please see medication reconciliation for a list of current medication. Thank you for allowing us to participate in the care of this patient. The impression and plan of care has been dictated by Juana Canseco, Nurse Practitioner as directed. Dr. Kamla MD I have performed a history and physical examination and medical decision making of this patient, discussed the same with the dictator, and agree with the dictators assessment and plan as written, documented as a scribe. Based on total visit time, I have performed more than 50% of this visit. Patient Condition at Discharge: Stable Plan - Discharge Summary Discharge Rx Participant: Yes New Discharge Prescriptions: Continue PARoxetine HCL [PARoxetine HCL ER] 75 mg PO DAILY@0800 Propranolol [Inderal] 10 mg PO DAILY@1600 OLANZapine [OLANZapine Odt] 10 mg PO HS@2000 Melatonin 5 mg PO HS@2000 Divalproex Sodium [Depakote] 1,000 mg PO HS@2000 Docusate [Colace] 100 mg PO BID PRN PRN Reason: Constipation Pantoprazole [Protonix] 40 mg PO DAILY@0800 LORazepam [Ativan] 1 mg PO DAILY PRN PRN Reason: Agitation or anxiety ALPRAZolam [Xanax] 0.25 mg PO DAILY PRN PRN Reason: Anxiety Naltrexone HCl [Revia] 50 mg PO DAILY@0800 Divalproex Sodium [Depakote] 500 mg PO DAILY@0800 Ondansetron Odt [Zofran ODT] 4 mg PO Q8HR PRN #10 tab PRN Reason: Nausea hydrOXYzine pamoate [Vistaril] 50 mg PO BID@08,1999 Discontinued metFORMIN HCL [Glucophage] 500 mg PO DAILY@0800 Discharge Medication List PARoxetine HCL [PARoxetine HCL ER] 75 mg PO DAILY@0800 06/19/18 [History] ALPRAZolam [Xanax] 0.25 mg PO DAILY PRN 06/23/22 [History] Divalproex Sodium [Depakote] 1,000 mg PO HS@199906/23/22 [History] Divalproex Sodium [Depakote] 500 mg PO DAILY@0800 06/23/22 [History] LORazepam [Ativan] 1 mg PO DAILY PRN 06/23/22 [History] Melatonin 5 mg PO HS@199906/23/22 [History] Naltrexone HCl [Revia] 50 mg PO DAILY@0800 06/23/22 [History] OLANZapine [OLANZapine Odt] 10 mg PO HS@199906/23/22 [History] Ondansetron Odt [Zofran ODT] 4 mg PO Q8HR PRN #10 tab 06/23/22 [Rx] Propranolol [Inderal] 10 mg PO DAILY@1600 06/23/22 [History] Docusate [Colace] 100 mg PO BID PRN 07/05/22 [History] Pantoprazole [Protonix] 40 mg PO DAILY@0800 07/14/22 [History] hydrOXYzine pamoate [Vistaril] 50 mg PO BID@08,199907/14/22 [History] Follow up Appointment(s)/Referral(s): Lenora Locke MD [Primary Care Provider] - 1-2 days Ambulatory/Diagnostic Orders: Complete Blood Count w/diff [LAB.AMB] Time Frame: 3 Days, Location: None Selected Activity/Diet/Wound Care/Special Instructions: Recommend stopping metformin on discharge this could be attributing to the GI upset nausea, diarrhea and vomiting. Continue on zofran as needed Repeat labs in 2 to 3 days outpatient and recommend to see PCP in the office. Patient to return to the assisted on discharge. Discharge Disposition: HOME SELF-CARE
== END 2022-07-14 16:39 | disposition home or self-care (01) ==
LOC: EC 00:27 → 4SSUR 06:26 → INTOOBSV 06:26 → 4SSUR 13:25 → UNDODISIN 16:39
PROVIDERS: ADMIT Internal Medicine; ATTEND Internal Medicine
DX: R11.2 Nausea with vomiting, unspecified (principal); E86.0 Dehydration; D72.829 Elevated white blood cell count, unspecified; F84.0 Autistic disorder; Z79.899 Other long term (current) drug therapy; Z79.84 Long term (current) use of oral hypoglycemic drugs
CPT/HCPCS: 96374; 99285; 36415; 80164; 80053; 83690; 83735; 85025; G0378; J2405; 96361; 99284

== ENCOUNTER 2022-12-29 11:11 | Day surgery (SDC) | payer BC, OTHER ==
[~2022-12-29 11:11] MED LIST: LACTATED RINGERS 1,000 ML IV SCH
[2022-12-29 12:54] VITALS: RESP 16; TEMP 97.8
[2022-12-29] MEDS ORDERED: PROPOFOL 10 MG/ML 20 ML VIAL IV ONE (13:24)
[2022-12-29] MEDS ORDERED: LIDOCAINE 1% INJ 10MG/ML (20 ML MDV) ONE (13:24)
--- NOTE | 2022-12-29 13:33 | P.PCN ---
Date of Procedure: 12/29/22 Procedure(s) Performed: BRIEF HISTORY: Patient is a 22-year-old, pleasant, white male is here severe autism/nonverbal scheduled for an upper endoscopy as a part of evaluation of chronic nausea vomiting for the last 6 months duration. PROCEDURE PERFORMED: Esophagogastroduodenoscopy with biopsy. PREOPERATIVE DIAGNOSIS: Chronic intermittent nausea vomiting of 6 was duration. IV sedation per anesthesia. PROCEDURE: After informed consent was obtained, the patient was brought into the endoscopy unit. IV sedation was administered by Anesthesia under continuous monitoring. Initially the Olympus GIF-140 video endoscope was inserted into the mouth. Esophagus intubated without any difficulty. It was gradually advanced into the stomach and duodenum and carefully examined. The bulb and the second part of the duodenum appeared normal. His were done from the duodenum to rule out celiac disease. The scope at this time was withdrawn to the stomach, adequately insufflated with air, and upon careful examination, mucosa of the antrum, diffuse scattered erosions and biopsies were done from this area. Mucosa of the body, cardia and the fundus appeared normal. The scope was then withdrawn into the esophagus. Hiatal hernia noted. The GE junction was located at 43 cm from the incisors. The esophagus appeared normal. There were no erosions or ulcerations seen , multiple biopsies were done from the mid and distal esophagus and the patient tolerated the procedure well. IMPRESSION: 1. Mild antral Gastritis. 2. Small hiatal hernia but no evidence of peptic ulcer disease or esophagitis. RECOMMENDATIONS: The findings of this examination were discussed with the patient as well as his family. He was advised to follow up with the biopsy results. He will continue on Zofran as needed as well as Protonix 40 mg daily and he will be seen back in the office in 2-3 weeks.
[2022-12-29 14:16] VITALS: BP 107/71; PULSE 109
== END 2022-12-29 14:10 | disposition home or self-care (01) ==
LOC: ORWHC2ENDO 11:11
PROVIDERS: ATTEND Internal Medicine Gastroenterology
DX: K29.50 Unspecified chronic gastritis without bleeding (principal); K20.90 Esophagitis, unspecified without bleeding; K44.9 Diaphragmatic hernia without obstruction or gangrene; F84.0 Autistic disorder; Z98.890 Other specified postprocedural states; Z79.899 Other long term (current) drug therapy
CPT/HCPCS: 43239; J2001; J2704; 88305

== ENCOUNTER 2023-10-25 21:44 | Emergency (ER) | payer BC, OTHER ==
[2023-10-25 21:49] VITALS: TEMP 98.1
--- NOTE | 2023-10-25 22:15 | ED ---
Skin/Abscess/FB HPI - General Chief complaint: Skin/Abscess/Foreign Body Stated complaint: Allergic Reaction Time Seen by Provider: 10/25/23 22:00 Source: family, RN notes reviewed Mode of arrival: ambulatory - History of Present Illness Initial comments: 23-year-old male presenting with mother for right hand swelling x 1 hour. [facility] [place] who reports that about an hour ago he began to have right hand swelling and redness. Patient has been constantly scratching at his right hand. They believe he may have been bitten by a bug. Denies new foods today, new medications, lotions, soaps, detergents. Denies lip or tongue swelling. Otherwise acting normally. Patient is nonverbal. Denies diabetes. Denies trauma or injury to hand. - Related Data Home Medications Medication Instructions Recorded Confirmed PARoxetine HCL [PARoxetine HCL ER] 75 mg PO DAILY@0800 06/19/18 11/02/22 ALPRAZolam [Xanax] 0.25 mg PO DAILY PRN 06/23/22 11/02/22 Divalproex Sodium [Depakote] 1,000 mg PO HS@199906/23/22 11/02/22 Divalproex Sodium [Depakote] 500 mg PO DAILY@0800 06/23/22 11/02/22 LORazepam [Ativan] 1 mg PO DAILY PRN 06/23/22 11/02/22 Melatonin 5 mg PO HS@199906/23/22 11/02/22 Naltrexone HCl [Revia] 50 mg PO DAILY@0806/23/22 11/02/22 OLANZapine [OLANZapine Odt] 10 mg PO HS@199906/23/22 11/02/22 Propranolol [Inderal] 10 mg PO DAILY@1600 06/23/22 11/02/22 Docusate [Colace] 100 mg PO HS PRN 07/05/22 11/02/22 Pantoprazole [Protonix] 40 mg PO DAILY@0807/14/22 11/02/22 hydrOXYzine pamoate [Vistaril] 50 mg PO BID@08,199907/14/22 11/02/22 Ondansetron Odt [Zofran ODT] 4 mg PO Q8H PRN 11/02/22 11/02/22 polyethylene glycoL 3350 [Miralax] 17 gm PO DAILY@0800 11/02/22 11/02/22 Previous Rx's Medication Instructions Recorded diphenhydrAMINE [Benadryl] 50 mg PO QID PRN #20 capsule 10/25/23 predniSONE [Deltasone] 40 mg PO DAILY 5 Days #10 tab 10/25/23 Allergies Allergy/AdvReac Type Severity Reaction Status Date / Time No Known Allergies Allergy Verified 10/25/23 21:49 Review of Systems ROS Statement: Those systems with pertinent positive or pertinent negative responses have been documented in the HPI. ROS Other: All systems not noted in ROS Statement are negative. Past Medical History Additional Past Medical History / Comment(s): autism History of Any Multi-Drug Resistant Organisms: None Reported Past Surgical History: Orthopedic Surgery Additional Past Surgical History / Comment(s): dental surg Past Anesthesia/Blood Transfusion Reactions: No Reported Reaction Past Psychological History: No Psychological Hx Reported Smoking Status: Never smoker - Past Family History Sister(s) Family Medical History: Thyroid Disorder Mother Family Medical History: Hyperlipidemia General Exam General appearance: alert, in no apparent distress Head exam: Present: atraumatic, normocephalic, normal inspection Eye exam: Present: normal appearance, PERRL, EOMI. Absent: scleral icterus, conjunctival injection, periorbital swelling ENT exam: Present: normal exam, normal oropharynx, mucous membranes moist, other (No lip or tongue swelling) Neck exam: Present: normal inspection. Absent: tenderness, meningismus, lymphadenopathy Respiratory exam: Present: normal lung sounds bilaterally. Absent: respiratory distress, wheezes, rales, rhonchi, stridor Cardiovascular Exam: Present: regular rate, normal rhythm, normal heart sounds. Absent: systolic murmur, diastolic murmur, rubs, gallop, clicks GI/Abdominal exam: Present: soft, normal bowel sounds. Absent: distended, tenderness, guarding, rebound, rigid Right Upper Arm exam: Present: normal inspection, full ROM. Absent: tenderness, swelling Elbow exam: Present: normal inspection, full ROM. Absent: tenderness, swelling Forearm Wrist exam: Present: normal inspection, full ROM. Absent: tenderness, swelling Hand Wrist exam: Present: full ROM, swelling (Diffuse edema in right hand), erythema (Full radial pulses, cap refill less than 2 seconds, full sensation). Absent: normal inspection (Diffuse urticaria present on right hand, no obvious macules or punctate lynn), tenderness, laceration, deformity Vascular: Present: normal capillary refill, radial pulse. Absent: vascular compromise Neurological exam: Present: alert Psychiatric exam: Present: normal affect, normal mood Skin exam: Present: warm, dry, intact, normal color Course Vital Signs 10/25/23 10/25/23 21:45 23:22 Temperature 98.1 F Pulse Rate 79 86 Respiratory 16 18 Rate Blood Pressure 118/68 129/80 O2 Sat by Pulse 95 99 Oximetry Medical Decision Making - Medical Decision Making Was pt. sent in by a medical professional or institution (, PA, TELE MARKETING EXECUTIVE, urgent care, hospital, or custodial...) When possible be specific @ -No Did you speak to anyone other than the patient for history (EMS, parent, family, police, friend...)? What history was obtained from this source @ -Mother provided history as patient is nonverbal Did you review nursing and triage notes (agree or disagree)? Why? @ -I reviewed and agree with nursing and triage notes Were old charts reviewed (outside hosp., previous admission, EMS record, old EKG, old radiological studies, urgent care reports/EKG's, custodial records)? Report findings @ -No old charts were reviewed Differential Diagnosis (chest pain, altered mental status, abdominal pain women, abdominal pain men, vaginal bleeding, weakness, fever, dyspnea, syncope, headache, dizziness, GI bleed, back pain, seizure, CVA, palpatations, mental health, musculoskeletal)? @ -Differential Musculoskeletal Logic reaction, hives, muscular strain, contusion, ligament sprain, fracture, arthritis, septic arthritis, bursitis, cellulitis, muscle spasm, nerve compression, DVT, arterial occlusion, herpes zoster, electrolyte abnormality, tumor.... This is not meant to be in all inclusive list EKG interpreted by me (3pts min.). @ -None X-rays interpreted by me (1pt min.). @ -None done CT interpreted by me (1pt min.). @ -None done U/S interpreted by me (1pt. min.). @ -None done What testing was considered but not performed or refused? (CT, X-rays, U/S, labs)? Why? @ -None What meds were considered but not given or refused? Why? @ -None Did you discuss the management of the patient with other professionals (professionals i.e. DrIrene, PA, TELE MARKETING EXECUTIVE, lab, RT, psych nurse, social worker palliative care, horseradish maker, teacher, court registry officer, mental health case manager)? Give summary @ -No Was smoking cessation discussed for >3mins.? @ -No Was critical care preformed (if so, how long)? @ -No Were there social determinants of health that impacted care today? How? (Homelessness, low income, unemployed, alcoholism, drug addiction, transportation, low edu. Level, literacy, decrease access to med. care, senior living, rehab)? @ -No Was there de-escalation of care discussed even if they declined (Discuss DNR or withdrawal of care, Hospice)? DNR status @ -No What co-morbidities impacted this encounter? (DM, HTN, Smoking, COPD, CAD, Cancer, CVA, ARF, Chemo, Hep., AIDS, mental health diagnosis, sleep apnea, morbid obesity)? @ -None Was patient admitted / discharged? Hospital course, mention meds given and route, prescriptions, significant lab abnormalities, going to OR and other pertinent info. @ -Patient was discharged. This is a 23-year-old male presenting for right hand swelling x 1 hour with redness and itchiness. No alarm symptoms such as lip or tongue swelling, chest pain, shortness of breath. Vitals within normal limits. Upon examination, right hand is erythematous, swollen, rash consistent with urticaria. Neurovascularly intact. Patient was given IM Solu-Medrol and Benadryl and monitored. Upon reevaluation, symptoms have improved. Discussed diagnosis of allergic reaction. Prescribed prednisone and Benadryl to start tomorrow. Return precautions discussed and mother demonstrates understanding. Case was discussed with my ED attending Dr. Ramirez. Patient discharged in stable condition. Undiagnosed new problem with uncertain prognosis? @ -No Drug Therapy requiring intensive monitoring for toxicity (Heparin, Nitro, Insulin, Cardizem)? @ -No Were any procedures done? @ -No Diagnosis/symptom? @ -Allergic reaction, urticaria Acute, or Chronic, or Acute on Chronic? @ -Acute Uncomplicated (without systemic symptoms) or Complicated (systemic symptoms)? @ -Uncomplicated Side effects of treatment? @ -No Exacerbation, Progression, or Severe Exacerbation? @ -No Poses a threat to life or bodily function? How? (Chest pain, [place], [place], pneumonia, PE, COPD, DKA, ARF, appy, cholecystitis, CVA, Diverticulitis, Homicidal, Suicidal, threat to staff... and all critical care pts) @ -No Disposition Clinical Impression: Allergic reaction Disposition: HOME SELF-CARE Condition: Stable Instructions (If sedation given, give patient instructions): Urticaria (ED) Additional Instructions: Take Benadryl and steroids as prescribed starting tomorrow. Please return to the Emergency Department if symptoms worsen or any other concerns. Prescriptions: diphenhydrAMINE [Benadryl] 50 mg PO QID PRN #20 capsule PRN Reason: Itching predniSONE [Deltasone] 40 mg PO DAILY 5 Days #10 tab Is patient prescribed a controlled substance at d/c from ED?: No Referrals: Lenora Locke MD [Primary Care Provider] - 1-2 days Time of Disposition: 23:20
[2023-10-25] MEDS: methylPREDNISolone SOD SUCCI 125 MG/2 ML VIAL IM ONE (22:21)
[2023-10-25] MEDS: diphenhydrAMINE 50 MG/ML 1 ML VIAL IM STA (22:21)
[2023-10-25 23:25] VITALS: BP 129/80; PULSE 86; RESP 18
== END 2023-10-25 23:36 | disposition home or self-care (01) ==
LOC: EC 21:44
DX: T78.40XA Allergy, unspecified, initial encounter (principal)
CPT/HCPCS: 99283; 96372 ×2; J1200; J2919

== ENCOUNTER 2024-07-30 20:53 | Emergency (ER) | payer BC, OTHER ==
[2024-07-30 21:03] VITALS: TEMP 98.6
[2024-07-30] MEDS: TOPICAL SKIN ADHESIVE 1 EACH AMP TOPICAL ONE (21:58)
--- NOTE | 2024-07-30 22:17 | ED ---
General Adult HPI - General Chief complaint: Wound/Laceration Stated complaint: Head Laceration Time Seen by Provider: 07/30/24 21:29 Source: patient, RN notes reviewed Mode of arrival: ambulatory Limitations: no limitations - History of Present Illness Initial comments: 24-year-old male presents to the emergency department for forehead laceration. Patient was celebrating his birthday when he leaned forward hitting his head on a cup. This caused a laceration above his right eyebrow. He is unsure when he last had a tetanus vaccine. He did not lose consciousness. He is not on blood thinners. - Related Data Home Medications Medication Instructions Recorded Confirmed PARoxetine HCL [PARoxetine HCL ER] 75 mg PO DAILY@0800 06/19/18 11/02/22 ALPRAZolam [Xanax] 0.25 mg PO DAILY PRN 06/23/22 11/02/22 Divalproex Sodium [Depakote] 1,000 mg PO HS@199906/23/22 11/02/22 Divalproex Sodium [Depakote] 500 mg PO DAILY@0806/23/22 11/02/22 LORazepam [Ativan] 1 mg PO DAILY PRN 06/23/22 11/02/22 Melatonin 5 mg PO HS@199906/23/22 11/02/22 Naltrexone HCl [Revia] 50 mg PO DAILY@0806/23/22 11/02/22 OLANZapine [OLANZapine Odt] 10 mg PO HS@199906/23/22 11/02/22 Propranolol [Inderal] 10 mg PO DAILY@1600 06/23/22 11/02/22 Docusate [Colace] 100 mg PO HS PRN 07/05/22 11/02/22 Pantoprazole [Protonix] 40 mg PO DAILY@0800 07/14/22 11/02/22 hydrOXYzine pamoate [Vistaril] 50 mg PO BID@799,199907/14/22 11/02/22 Ondansetron Odt [Zofran ODT] 4 mg PO Q8H PRN 11/02/22 11/02/22 polyethylene glycoL 3350 [Miralax] 17 gm PO DAILY@0800 11/02/22 11/02/22 Previous Rx's Medication Instructions Recorded diphenhydrAMINE [Benadryl] 50 mg PO QID PRN #20 capsule 10/25/23 predniSONE [Deltasone] 40 mg PO DAILY 5 Days #10 tab 10/25/23 Allergies Allergy/AdvReac Type Severity Reaction Status Date / Time No Known Allergies Allergy Verified 07/30/24 21:03 Review of Systems ROS Statement: Those systems with pertinent positive or pertinent negative responses have been documented in the HPI. ROS Other: All systems not noted in ROS Statement are negative. Past Medical History Additional Past Medical History / Comment(s): autism History of Any Multi-Drug Resistant Organisms: None Reported Past Surgical History: Orthopedic Surgery Additional Past Surgical History / Comment(s): dental surg Past Anesthesia/Blood Transfusion Reactions: No Reported Reaction Past Psychological History: No Psychological Hx Reported Smoking Status: Never smoker Past Alcohol Use History: None Reported Past Drug Use History: None Reported - Past Family History Sister(s) Family Medical History: Thyroid Disorder Mother Family Medical History: Hyperlipidemia General Exam Limitations: no limitations General appearance: alert, in no apparent distress Head exam: Present: atraumatic, normocephalic, normal inspection Eye exam: Present: normal appearance, PERRL, EOMI. Absent: scleral icterus, conjunctival injection, periorbital swelling ENT exam: Present: normal exam, mucous membranes moist Neck exam: Present: normal inspection. Absent: tenderness, meningismus, lymphadenopathy Extremities exam: Present: normal inspection, full ROM, normal capillary refill. Absent: tenderness, pedal edema, joint swelling, calf tenderness Neurological exam: Present: alert, oriented X3 Psychiatric exam: Present: normal affect, normal mood Skin exam: Present: warm, dry. Absent: intact (1 cm laceration to the right forehead) Course Vital Signs 07/30/24 07/30/24 21:00 22:33 Temperature 98.6 F Pulse Rate 94 91 Respiratory 18 20 Rate Blood Pressure 138/85 161/84 O2 Sat by Pulse 95 98 Oximetry Medical Decision Making - Medical Decision Making Was pt. sent in by a medical professional or institution (, PA, STOCK ORDER LISTER, urgent care, hospital, or intermediate...) When possible be specific @ -No Did you speak to anyone other than the patient for history (EMS, parent, family, police, friend...)? What history was obtained from this source @ -Patient's mother provided history of this patient Did you review nursing and triage notes (agree or disagree)? Why? @ -I reviewed and agree with nursing and triage notes Were old charts reviewed (outside hosp., previous admission, EMS record, old EKG, old radiological studies, urgent care reports/EKG's, intermediate records)? Report findings @ -No old charts were reviewed Differential Diagnosis (chest pain, altered mental status, abdominal pain women, abdominal pain men, vaginal bleeding, weakness, fever, dyspnea, syncope, he adache, dizziness, GI bleed, back pain, seizure, CVA, palpatations, mental health, musculoskeletal)? @ -Laceration, head injury EKG interpreted by me (3pts min.). @ -None X-rays interpreted by me (1pt min.). @ -None done CT interpreted by me (1pt min.). @ -None done U/S interpreted by me (1pt. min.). @ -None done What testing was considered but not performed or refused? (CT, X-rays, U/S, la bs)? Why? @ -None What meds were considered but not given or refused? Why? @ -None Did you discuss the management of the patient with other professionals (professionals i.e. , PA, STOCK ORDER LISTER, lab, RT, psych nurse, social insurance adviser, system administration manager, teacher, ecological technical officer, major case detective)? Give summary @ -No Was smoking cessation discussed for >3mins.? @ -No Was critical care preformed (if so, how long)? @ -No Were there social determinants of health that impacted care today? How? (Homelessness, low income, unemployed, alcoholism, drug addiction, transportation, low edu. Level, literacy, decrease access to med. care, correction, rehab)? @ -No Was there de-escalation of care discussed even if they declined (Discuss DNR or withdrawal of care, Hospice)? DNR status @ -No What co-morbidities impacted this encounter? (DM, HTN, Smoking, COPD, CAD, Cancer, CVA, ARF, Chemo, Hep., AIDS, mental health diagnosis, sleep apnea, morbid obesity)? @ -None Was patient admitted / discharged? Hospital course, mention meds given and route, prescriptions, significant lab abnormalities, going to OR and other pertinent info. @ -Discharged. Patient presents emergency department for forehead laceration. The area was cleaned. Laceration was repaired with skin adhesive. Patient will be discharged home. Understanding agreeable to plan. Patient stable at time of discharge. Case discussed with Dr. Rod. Undiagnosed new problem with uncertain prognosis? @ -No Drug Therapy requiring intensive monitoring for toxicity (Heparin, Nitro, Insulin, Cardizem)? @ -No Were any procedures done? @ -No Diagnosis/symptom? @ -Laceration Acute, or Chronic, or Acute on Chronic? @ -Acute Uncomplicated (without systemic symptoms) or Complicated (systemic symptoms)? @ -Uncomplicated Side effects of treatment? @ -No Exacerbation, Progression, or Severe Exacerbation? @ -No Poses a threat to life or bodily function? How? (Chest pain, [place], [place], pneumonia, PE, COPD, DKA, ARF, appy, cholecystitis, CVA, Diverticulitis, Homicidal, Suicidal, threat to staff... and all critical care pts) @ -No Disposition Clinical Impression: Laceration Disposition: HOME SELF-CARE Condition: Stable Instructions (If sedation given, give patient instructions): Laceration (ED), Skin Adhesive Care (ED) Additional Instructions: Please keep wound clean and dry Be on the look out for signs of infection including redness, discharge, increased pain. Please follow-up with your primary care provider. Return to the emergency department for new or worsening symptoms. Is patient prescribed a controlled substance at d/c from ED?: No Referrals: Lenora Locke MD [Primary Care Provider] - 1-2 days
[2024-07-30] MEDS: DIPH,PERTUS(ACELL)TETVAC-LF 0.5 ML VIAL IM ONE (22:29)
[2024-07-30 22:38] VITALS: BP 161/84; PULSE 91; RESP 20
== END 2024-07-30 22:38 | disposition home or self-care (01) ==
LOC: EC 20:53
DX: S01.81XA Laceration without foreign body of other part of head, initial encounter (principal); Z23 Encounter for immunization; W22.8XXA Striking against or struck by other objects, initial encounter
CPT/HCPCS: 12011; 90471; 90715; 99282